=== PATIENT | male | born 1950 | race Caucasian/White ===

== ENCOUNTER 2017-07-08 22:15 | Emergency (ER) | payer OTHER ==
[~2017-07-08] VITALS: Ht 177.8 cm; Wt 83.9 kg
[~2017-07-08 22:15] MED LIST: AMOX500 PO; CEPH500 PO; HYDACE10B PO; HYDACE5 PO; NAPR500 PO; PERCOCET; PHENERGAN; PRED10 PO; WATER PILL
== END 2017-07-08 23:21 | disposition left against medical advice (07) ==
LOC: ER 22:15
DX: S01.01XA Laceration without foreign body of scalp, initial encounter (principal); W18.30XA Fall on same level, unspecified, initial encounter; F17.200 Nicotine dependence, unspecified, uncomplicated
CPT/HCPCS: 12002; 99283

== ENCOUNTER 2017-07-20 09:35 | Emergency (ER) | payer OTHER ==
[~2017-07-20] VITALS: Ht 175.3 cm; Wt 72.6 kg
== END 2017-07-20 09:59 | disposition home or self-care (01) ==
LOC: ER 09:35
DX: S01.01XD Laceration without foreign body of scalp, subsequent encounter (principal); W01.198D Fall on same level from slipping, tripping and stumbling with subsequent striking against other object, subsequent encounter; F17.200 Nicotine dependence, unspecified, uncomplicated
CPT/HCPCS: 99281

== ENCOUNTER 2017-09-14 13:39 | Emergency (ER) | payer OTHER ==
[~2017-09-14] VITALS: Ht 175.3 cm; Wt 72.6 kg
[2017-09-14] MEDS ORDERED: Norco 5-325 Ta1 EACH PO (15:30)
== END 2017-09-14 16:19 | disposition home or self-care (01) ==
LOC: ER 13:39
DX: S43.015A Anterior dislocation of left humerus, initial encounter (principal); F17.200 Nicotine dependence, unspecified, uncomplicated; W01.0XXA Fall on same level from slipping, tripping and stumbling without subsequent striking against object, initial encounter
CPT/HCPCS: 23650; 73020; 73030; 96372; 99152; 99284; J3010; J7030

== ENCOUNTER 2017-09-20 11:42 | Emergency (ER) | payer OTHER ==
[~2017-09-20] VITALS: Ht 175.3 cm; Wt 72.6 kg
[~2017-09-20 11:42] MED LIST changes: +Norco 5-325 Ta1 EACH PO
[2017-09-20] MEDS ORDERED: IBUP800 PO (13:21)
== END 2017-09-20 13:41 | disposition home or self-care (01) ==
LOC: ER 11:42
DX: S42.292A Other displaced fracture of upper end of left humerus, initial encounter for closed fracture (principal); S43.005A Unspecified dislocation of left shoulder joint, initial encounter; G56.32 Lesion of radial nerve, left upper limb; F17.200 Nicotine dependence, unspecified, uncomplicated; X58.XXXA Exposure to other specified factors, initial encounter
CPT/HCPCS: 29125; 73060; 73110; 99283; L3917

== ENCOUNTER 2018-08-22 14:57 | Inpatient (IN) | payer OTHER ==
[~2018-08-22] VITALS: Ht 175.3 cm; Wt 81.0 kg
[~2018-08-22 14:57] MED LIST changes: +IBUP800 PO
[2018-08-22 15:45] LABS: BASOPHILS ABSOLUTE AUTO 0.02 K/mm3 (0.00-0.23); BASOPHILS PERCENT AUTO 0 % (0-2); EOSINOPHILS ABSOLUTE AUTO 0.07 K/mm3 (0.00-0.68); EOSINOPHILS PERCENT AUTO 1 % (0-6); Hematocrit 33.8 % (37.0-53.0); Hemoglobin 12.6 g/dL (13.5-17.5); IMMATURE GRAN PERCENT AUTO 1 % (0-1); LYMPHOCYTES ABSOLUTE AUTO 1.09 K/mm3 (0.84-5.20); LYMPHOCYTES PERCENT AUTO 9 % (21-46); MONOCYTES ABSOLUTE AUTO 1.03 K/mm3 (0.16-1.47); MONOCYTES PERCENT AUTO 9 % (4-13); Mean Corpuscular HGB Conc 37.3 g/dL (31.5-36.5); Mean Corpuscular Volume 110 fL (80-100); Mean Platelet Volume 9.8 fL (9.1-12.4); NEUTROPHILS ABSOLUTE AUTO 9.55 K/mm3 (1.96-9.15); NEUTROPHILS PERCENT AUTO 81 % (41-73); NRBC ABSOLUTE 0.02 K/mm3 (0.00-0.02); NRBC Auto 0.2 /100 WBC (0.0-0.2); Platelet Count 163 K/mm3 (150-400); RDW Coefficient Variation 17.6 % (11.7-14.2); RDW Standard Deviation 71.2 fL (35.1-46.3); Red Blood Cell Count 3.07 M/mm3 (4.30-5.90); White Blood Cell Count 11.86 K/mm3 (4.00-11.30)
[2018-08-22 16:14] LABS: Alanine Aminotransfer (ALT/SGP 83 U/L (12-78); Albumin, Blood 2.2 g/dL (3.4-5.0); Albumin/Globulin Ratio 0.6 (0.8-1.8); Alk Phos 156 U/L (50-136); Anion Gap 14 mmol/L (6-16); Aspartate Aminotrans (AST/SGOT 124 U/L (12-37); Bilirubin, Total 9.3 mg/dL (0.1-1.0); Blood Urea Nitrogen 8 mg/dL (8-24); Bun/Creatinine Ratio 9.2 (12.0-20.0); CO2, Blood 26 mmol/L (21-32); Calcium, Blood 7.8 mg/dL (8.5-10.1); Chloride, Blood 86 mmol/L (98-108); Creatinine, Blood 0.87 mg/dL (0.60-1.20); Ethanol (Alcohol), Blood, Med <3 mg/dL; Globulin, Blood 3.8 g/dL (2.2-4.0); Glomerular Filtration Rate >60 (60-); Glucose, Blood 128 mg/dL (70-99); International Normalized Ratio 1.99; Magnesium, Blood 1.7 mg/dL (1.6-2.4); Phosphorus, Blood 1.5 mg/dL (2.5-4.9); Potassium, Blood 3.1 mmol/L (3.5-5.5); Prothrombin Time Results 19.8 Sec (9.7-11.5); Sodium, Blood 126 mmol/L (136-145); Troponin I 0.037 ng/mL (0.000-0.040)
[2018-08-22 16:38] LABS: Source, Urine Clean Catch
[2018-08-22 16:40] LABS: Blood, Urine 2+ (Neg); Glucose Qualitative, Urine Neg (Neg); Ketones, Urine 1+ (Neg); Leukocyte Esterase, Urine 2+ (Neg); Nitrite, Urine Pos (Neg); Protein, Urine 1+ (Neg); Urobilinogen, Urine 4+ (Normal)
[2018-08-22 16:53] LABS: Bilirubin, Urine 3+ (Neg)
[2018-08-22 16:54] LABS: Appearance, Urine Clear (Clear); Color, Urine Amber (P-Yellow)
[2018-08-22 16:57] LABS: Renal Epithelial Few /hpf (0-Rare)
[2018-08-22 16:58] LABS: Bacteria Few /hpf; Hyaline Casts 0-2 /lpf (0-2); Squamous Epithelial Cells Not Seen /hpf (Few)
[2018-08-22 18:22] LABS: BASOPHILS ABSOLUTE AUTO 0.01 K/mm3 (0.00-0.23); BASOPHILS PERCENT AUTO 0 % (0-2); EOSINOPHILS ABSOLUTE AUTO 0.02 K/mm3 (0.00-0.68); EOSINOPHILS PERCENT AUTO 0 % (0-6); Hemoglobin 12.3 g/dL (13.5-17.5); IMMATURE GRAN PERCENT AUTO 1 % (0-1); LYMPHOCYTES ABSOLUTE AUTO 0.89 K/mm3 (0.84-5.20); LYMPHOCYTES PERCENT AUTO 8 % (21-46); MONOCYTES ABSOLUTE AUTO 1.07 K/mm3 (0.16-1.47); MONOCYTES PERCENT AUTO 9 % (4-13); Mean Corpuscular HGB 40.5 pg (26.0-34.0); Mean Corpuscular HGB Conc 37.3 g/dL (31.5-36.5); Mean Corpuscular Volume 109 fL (80-100); Mean Platelet Volume 9.9 fL (9.1-12.4); NEUTROPHILS PERCENT AUTO 82 % (41-73); NRBC ABSOLUTE 0.02 K/mm3 (0.00-0.02); NRBC Auto 0.2 /100 WBC (0.0-0.2); Platelet Count 147 K/mm3 (150-400); RDW Coefficient Variation 17.5 % (11.7-14.2); RDW Standard Deviation 69.8 fL (35.1-46.3); Red Blood Cell Count 3.04 M/mm3 (4.30-5.90); White Blood Cell Count 11.69 K/mm3 (4.00-11.30)
--- NOTE | 2018-08-22 19:42 | NUR ---
transfer report from [facility] RN on PT being admitted with alcoholism, liver failure, Jaundice, weakness. Will be Tele monitor and fall and seizure precautions. Await admission.
--- NOTE | 2018-08-22 19:46 | NUR ---
transfer report on PT being admitted with weakness, alcoholism. Will be tele monitored and fall risk. ETOH level negative and reported no ETOH x 2 weeks.
--- NOTE | 2018-08-23 04:08 | NUR ---
MALE PT ADMITTED WITH ALCOHOLIC HEPATITIS AND ASCITES AND JAUNDICE.PT SAID HE HAD 9 YEARS OF SOBRIETY WITH 2 MONTHS AGO RELAPSE. RECENT FALLS AND SCATTERED ABRAISIONS. ON TELE MONITOR WITH TACHYCARDIA. PT UNABLE TO STAND OR EVEN BALANCE FOR BID ORTHOSTAIC CHECKS LAST BP 95 SYSTOLIC. SMOKER 50 PLUS YEARS WITH COPD. MOIST LOOSE COUGH PRESENT. ON ROOM AIR. LAST DRINK 2 WEEKS AGO AND NO SIGNS OF SEIZURE ACTIVITY. FALL RISK AND HAS COAGULOPATHY. COOPERATIVE AND TAKES SUPPLEMENTS AND SNACKS WHEN OFFERED. sON AND dtr SUPPORTIVE BUT DON'T LIVE WITH PT. RECIEVED BANANA BAG OF IV FLUIDS. CONTINUE TO PROVIDE SAFE ENVIRONMENT. WILL CALL GI CONSULT DIRECTED TO DO ON THURSDAY.
[2018-08-23 06:04] LABS: Albumin, Blood 2.1 g/dL (3.4-5.0); Albumin/Globulin Ratio 0.6 (0.8-1.8); Alk Phos 173 U/L (50-136); Anion Gap 11 mmol/L (6-16); Bilirubin, Direct 6.4 mg/dL (0.0-0.3); Bilirubin, Indirect 1.4 mg/dL (0.1-0.7); Bilirubin, Total 7.8 mg/dL (0.1-1.0); Blood Urea Nitrogen 7 mg/dL (8-24); Bun/Creatinine Ratio 8.6 (12.0-20.0); CO2, Blood 25 mmol/L (21-32); Calcium, Blood 8.1 mg/dL (8.5-10.1); Chloride, Blood 92 mmol/L (98-108); Creatinine, Blood 0.81 mg/dL (0.60-1.20); Globulin, Blood 3.5 g/dL (2.2-4.0); Glomerular Filtration Rate >60 (60-); Glucose, Blood 143 mg/dL (70-99); Magnesium, Blood 2.2 mg/dL (1.6-2.4); Phosphorus, Blood 1.6 mg/dL (2.5-4.9); Potassium, Blood 3.1 mmol/L (3.5-5.5); Sodium, Blood 128 mmol/L (136-145); Total Protein, Blood 5.6 g/dL (6.4-8.2)
[2018-08-23 06:05] LABS: Alanine Aminotransfer (ALT/SGP 73 U/L (12-78); Aspartate Aminotrans (AST/SGOT 99 U/L (12-37)
--- NOTE | 2018-08-23 13:24 | NUR ---
Per admit trigger, I met with Mr. Ramirez to discuss an Advanced Directive. He was not particularly interested, but took the information. He was pleasantly dismissive. I will remain available.
[2018-08-23 17:55] LABS: BASOPHILS ABSOLUTE AUTO 0.02 K/mm3 (0.00-0.23); BASOPHILS PERCENT AUTO 0 % (0-2); EOSINOPHILS ABSOLUTE AUTO 0.03 K/mm3 (0.00-0.68); EOSINOPHILS PERCENT AUTO 0 % (0-6); Hematocrit 32.2 % (37.0-53.0); Hemoglobin 11.7 g/dL (13.5-17.5); IMMATURE GRAN ABSOLUTE AUTO 0.15 K/mm3 (0.00-0.10); IMMATURE GRAN PERCENT AUTO 1 % (0-1); LYMPHOCYTES ABSOLUTE AUTO 0.86 K/mm3 (0.84-5.20); LYMPHOCYTES PERCENT AUTO 8 % (21-46); MONOCYTES ABSOLUTE AUTO 0.98 K/mm3 (0.16-1.47); MONOCYTES PERCENT AUTO 9 % (4-13); Mean Corpuscular HGB 39.7 pg (26.0-34.0); Mean Corpuscular HGB Conc 36.3 g/dL (31.5-36.5); Mean Corpuscular Volume 109 fL (80-100); Mean Platelet Volume 10.1 fL (9.1-12.4); NEUTROPHILS ABSOLUTE AUTO 8.67 K/mm3 (1.96-9.15); NEUTROPHILS PERCENT AUTO 81 % (41-73); NRBC ABSOLUTE 0.02 K/mm3 (0.00-0.02); NRBC Auto 0.2 /100 WBC (0.0-0.2); Platelet Count 163 K/mm3 (150-400); RDW Coefficient Variation 17.4 % (11.7-14.2); RDW Standard Deviation 69.3 fL (35.1-46.3); Red Blood Cell Count 2.95 M/mm3 (4.30-5.90); White Blood Cell Count 10.71 K/mm3 (4.00-11.30)
--- NOTE | 2018-08-23 23:33 | NUR ---
SHIFT SUMMARY NO ACUTE CHANGES THIS SHIFT. PATIENT HAS BEEN INCONTINENT OF BLADDER MOST OF THE TIME. HE HAD TWO BM'S. HE DOES BEST AMBULATING TO THE TOILET FOR BM'S. HE IS FORGETFUL AT TIMES BUT NOT IMPULSIVE AT THIS TIME. NO COMPLAINTS OF PAIN. HE HAS REMAINED IN SINUS TACH THIS SHIFT. HE AMBULATES WELL WITH A WALKER TO THE BATHROOM. BED LOW AND LOCKED, CALL LIGHT WITHIN REACH, BED ALARM SET. WILL CONT TO MONITOR.
[2018-08-24 05:31] LABS: Hemoglobin 11.8 g/dL (13.5-17.5); Mean Corpuscular HGB 40.7 pg (26.0-34.0); Mean Corpuscular HGB Conc 36.9 g/dL (31.5-36.5); Mean Corpuscular Volume 110 fL (80-100); Mean Platelet Volume 10.1 fL (9.1-12.4); NRBC ABSOLUTE 0.04 K/mm3 (0.00-0.02); NRBC Auto 0.3 /100 WBC (0.0-0.2); Platelet Count 151 K/mm3 (150-400); RDW Coefficient Variation 17.4 % (11.7-14.2); RDW Standard Deviation 70.8 fL (35.1-46.3); White Blood Cell Count 13.85 K/mm3 (4.00-11.30)
--- NOTE | 2018-08-24 05:39 | NUR ---
ATTEMPTED TO CONSULT: PER CONSULT ORDER, DR LEHMAN'S ANSWERING SERVICE WAS CALLED TO REQUEST CONSULT. ANSWERING SERVICE SAYS DR LEHMAN IS ONLY ACCEPTING CONSULTS FOR EXISTING (CURRENT) PATIENTS.
[2018-08-24 06:02] LABS: Anion Gap 9 mmol/L (6-16); Blood Urea Nitrogen 9 mg/dL (8-24); Bun/Creatinine Ratio 12.1 (12.0-20.0); CO2, Blood 28 mmol/L (21-32); Calcium, Blood 8.5 mg/dL (8.5-10.1); Chloride, Blood 93 mmol/L (98-108); Creatinine, Blood 0.75 mg/dL (0.60-1.20); Glomerular Filtration Rate >60 (60-); Glucose, Blood 125 mg/dL (70-99); Potassium, Blood 3.5 mmol/L (3.5-5.5); Sodium, Blood 130 mmol/L (136-145)
--- NOTE | 2018-08-24 08:14 | NUR ---
SHIFT SUMMARY: NO ACUTE CHANGES TO REPORT THIS SHIFT. PT A&O; FORGETFUL; CALM AND COOPERATIVE WITH CARE. PT ON TELE; TACHYCARDIC; LUNGS COARSE & WHEEZY.EXPECTED D/C TO HOME ON THURSDAY 08/24. REPORT GIVEN TO ONCOMING RN.
--- NOTE | 2018-08-24 10:30 | NUR ---
NOTE LEFT ON VOICEMAIL, NO GI SCHEDULED FOR REST OF MONTH. IF SHE WANTS ONE SHE NEEDS TO DO "DOCTOR TO DOCTOR" CONSULT.
--- NOTE | 2018-08-24 15:25 | NUR ---
PATIENT ALERT AND ORIENTED. FORGETFUL. COOPERATIVE. PLEASANT. ON TELE AND AT THIS TIME [address] UP TO 110. UNLABORED RESPIRATIONS. 2 PERSON ASSIST TO BATHROOM W/WALKER AND GAITBELT. CIWA 0-4. PT C/O ANXIETY "ANXIOUS TO GET OUT." IV PATENT. NO C/O PAIN. JAUNDICE. UNSTEADY ON FEET. BED IN LOW POSITION. IS ABLE TO MAKE NEEDS KNOWN. WILL CONTINUE TO MONITOR.
[2018-08-24 19:29] LABS: BASOPHILS ABSOLUTE AUTO 0.04 K/mm3 (0.00-0.23); BASOPHILS PERCENT AUTO 0 % (0-2); EOSINOPHILS ABSOLUTE AUTO 0.05 K/mm3 (0.00-0.68); EOSINOPHILS PERCENT AUTO 0 % (0-6); Hematocrit 31.5 % (37.0-53.0); Hemoglobin 11.5 g/dL (13.5-17.5); IMMATURE GRAN ABSOLUTE AUTO 0.15 K/mm3 (0.00-0.10); IMMATURE GRAN PERCENT AUTO 1 % (0-1); LYMPHOCYTES ABSOLUTE AUTO 1.29 K/mm3 (0.84-5.20); LYMPHOCYTES PERCENT AUTO 10 % (21-46); MONOCYTES ABSOLUTE AUTO 1.08 K/mm3 (0.16-1.47); MONOCYTES PERCENT AUTO 9 % (4-13); Mean Corpuscular HGB 40.8 pg (26.0-34.0); Mean Corpuscular HGB Conc 36.5 g/dL (31.5-36.5); Mean Corpuscular Volume 112 fL (80-100); Mean Platelet Volume 9.9 fL (9.1-12.4); NEUTROPHILS ABSOLUTE AUTO 9.91 K/mm3 (1.96-9.15); NEUTROPHILS PERCENT AUTO 79 % (41-73); Platelet Count 173 K/mm3 (150-400); RDW Coefficient Variation 17.3 % (11.7-14.2); RDW Standard Deviation 71.5 fL (35.1-46.3); Red Blood Cell Count 2.82 M/mm3 (4.30-5.90); White Blood Cell Count 12.52 K/mm3 (4.00-11.30)
--- NOTE | 2018-08-25 03:36 | NUR ---
Pt is alert and oriented x3, CIWA score is 0. Pts abdomen firm and distended, lung sounds clear throughout. Telemetry reflects NSR with heart rate 100-110. Pts bed alarm on for safety. Pt denies pain and nausea.
[2018-08-25 06:01] LABS: Anion Gap 7 mmol/L (6-16); Blood Urea Nitrogen 8 mg/dL (8-24); Bun/Creatinine Ratio 9.7 (12.0-20.0); CO2, Blood 29 mmol/L (21-32); Calcium, Blood 7.9 mg/dL (8.5-10.1); Chloride, Blood 94 mmol/L (98-108); Creatinine, Blood 0.83 mg/dL (0.60-1.20); Glomerular Filtration Rate >60 (60-); Glucose, Blood 102 mg/dL (70-99); Potassium, Blood 3.7 mmol/L (3.5-5.5); Sodium, Blood 130 mmol/L (136-145)
[2018-08-25 10:18] LABS: Albumin, Blood 1.9 g/dL (3.4-5.0); Albumin/Globulin Ratio 0.6 (0.8-1.8); Bilirubin, Indirect 0.9 mg/dL (0.1-0.7); Bilirubin, Total 5.9 mg/dL (0.1-1.0); Globulin, Blood 3.3 g/dL (2.2-4.0); Total Protein, Blood 5.2 g/dL (6.4-8.2)
--- NOTE | 2018-08-25 19:00 | NUR ---
ALERT AND ORIENTED. WALKED TWICE TODAY. SECOND WALK IN HALLWAY SAME DISTANCE FIRST. WHEN PATIENT GOT BACK INTO ROOM HAD TO USE TOILET, WAS TACHYPNEIC AND FELT LIKE HE WAS GOING TO "PASS OUT." LEFT MESSAGE ON 'S VOICE MAIL. NIGHT RN ADVISED. AWARE NO GI MD ON TILL AUGUST. PATIENT FORGETFUL. STS "LOOSING MY MUSCLE, NOT WALKING." ADVISED WHEN HE ARRIVED HE COULD NOT WALK AND NOW HE IS. REPORT TO NIGHT RN.
[2018-08-25 20:47] LABS: Free Thyroxine 1.32 ng/dL (0.70-1.60)
[2018-08-25 20:50] LABS: Thyroid Stimulating Hormone 1.59 uIU/mL (0.360-4.800)
--- NOTE | 2018-08-25 21:41 | NUR ---
PATIENT OUT OF ROOM FOR CT PE STUDY.
--- NOTE | 2018-08-25 22:43 | NUR ---
PATIENT BACK IN ROOM. RESTING/SLEEPING. CALL LIGHT IN REACH.
--- NOTE | 2018-08-26 05:00 | NUR ---
SHIFT SUMMARY PATIENT HAD NO ACUTE CHANGES OBSERVED THIS SHIFT. AXOX 3 AND ONE PERSON ASSIST TO BSC. PIV LEAKED AND REPLACED. NS INFUSING AT 150 mL/HR. HR 116 AT SHIFT CHANGE AND 102 PRESENT. DENIES PAIN, SOB, AND N/V. AFEBRILE. PATIENT OUT FOR CT PE STUDY AND BACK TO ROOM. BED ALARM ACTIVATED AND IN LOWEST POSITION. CALL LIGHT IN REACH. WILL CONTINUE TO MONITOR UNTIL DAY SHIFT NURSE ASSUMES CARE.
[2018-08-26 05:43] LABS: BASOPHILS ABSOLUTE AUTO 0.04 K/mm3 (0.00-0.23); BASOPHILS PERCENT AUTO 0 % (0-2); EOSINOPHILS ABSOLUTE AUTO 0.04 K/mm3 (0.00-0.68); EOSINOPHILS PERCENT AUTO 0 % (0-6); Hematocrit 31.8 % (37.0-53.0); Hemoglobin 11.3 g/dL (13.5-17.5); IMMATURE GRAN ABSOLUTE AUTO 0.12 K/mm3 (0.00-0.10); IMMATURE GRAN PERCENT AUTO 1 % (0-1); LYMPHOCYTES ABSOLUTE AUTO 0.83 K/mm3 (0.84-5.20); LYMPHOCYTES PERCENT AUTO 6 % (21-46); MONOCYTES ABSOLUTE AUTO 1.17 K/mm3 (0.16-1.47); MONOCYTES PERCENT AUTO 8 % (4-13); Mean Corpuscular HGB 40.5 pg (26.0-34.0); Mean Corpuscular HGB Conc 35.5 g/dL (31.5-36.5); Mean Corpuscular Volume 114 fL (80-100); Mean Platelet Volume 9.9 fL (9.1-12.4); NEUTROPHILS ABSOLUTE AUTO 12.26 K/mm3 (1.96-9.15); NEUTROPHILS PERCENT AUTO 85 % (41-73); Platelet Count 175 K/mm3 (150-400); RDW Coefficient Variation 17.9 % (11.7-14.2); RDW Standard Deviation 75.4 fL (35.1-46.3); Red Blood Cell Count 2.79 M/mm3 (4.30-5.90); White Blood Cell Count 14.46 K/mm3 (4.00-11.30)
[2018-08-26 06:08] LABS: Anion Gap 8 mmol/L (6-16); Blood Urea Nitrogen 7 mg/dL (8-24); Bun/Creatinine Ratio 9.3 (12.0-20.0); CO2, Blood 27 mmol/L (21-32); Chloride, Blood 98 mmol/L (98-108); Creatinine, Blood 0.75 mg/dL (0.60-1.20); Glomerular Filtration Rate >60 (60-); Glucose, Blood 106 mg/dL (70-99); Potassium, Blood 4.2 mmol/L (3.5-5.5); Sodium, Blood 133 mmol/L (136-145)
--- NOTE | 2018-08-26 18:16 | NUR ---
Mr. Ramirez was very tired, but allowed me to pray for him at bedside. No needs or concerns presented. He is happy to be feeling better and believes this will continue. I will remain available.
--- NOTE | 2018-08-26 19:10 | NUR ---
SHIFT SUMMARY: NO ACUTE CHANGES TO REPORT THIS SHIFT. PT A&O; CALM AND COOPERATIVE WITH CARE. NO C/O PAIN THIS SHIFT. WEAK GAIT; UP WITH 1-ASSIST. REPORT GIVEN TO ONCOMING RN.
--- NOTE | 2018-08-26 23:26 | NUR ---
PATIENT ACTIVATE BED ALARM X 4 IN LAST FEW HOURS. USING URINAL AT BEDSIDE OR REPORTS WANTS TO SIT UP. CALL LIGHT IN REACH. CHAIR ALARM ACTIVATED. PATIENT WANTING TO WATCH TV.
[2018-08-27 00:10] LABS: HBSAG SCREEN Negative (Negative); HEP A AB, IGM Negative (Negative); HEP B CORE AB, TOT Negative (Negative); HEP C VIRUS AB <0.1 (0.0-0.9)
--- NOTE | 2018-08-27 03:21 | NUR ---
SHIFT SUMMARY PATIENT ACTIVE SETTING OFF BED ALARM T/O SHIFT. PATIENT ON LASIX AND MOVES TO SIDE OF BED TO USE URINAL WITH ASSIST. PATIENT MOVES TO BEDSIDE FOR REPOSITIONING TO SIT. PATIENT INFORMED TO USE CHAIR TO SIT WITH TAB ALARM. AXO X3 WITH ONE ASSIST. PIVS REMAIN INTACT. DENIES PAIN, SOB, AND N/V; AFEBRILE. HR 108 AT SHIFT CHANGE AND 111 PRESENT. NO ACUTE CHANGES OBSERVED. CALL LIGHT IN REACH. WILL CONTINUE TO MONITOR UNTIL DAY SHIFT NURSE ASSUMES CARE.
[2018-08-27 05:12] LABS: BASOPHILS ABSOLUTE AUTO 0.05 K/mm3 (0.00-0.23); BASOPHILS PERCENT AUTO 0 % (0-2); EOSINOPHILS ABSOLUTE AUTO 0.06 K/mm3 (0.00-0.68); EOSINOPHILS PERCENT AUTO 1 % (0-6); Hematocrit 35.1 % (37.0-53.0); Hemoglobin 12.5 g/dL (13.5-17.5); IMMATURE GRAN ABSOLUTE AUTO 0.08 K/mm3 (0.00-0.10); IMMATURE GRAN PERCENT AUTO 1 % (0-1); LYMPHOCYTES ABSOLUTE AUTO 0.93 K/mm3 (0.84-5.20); LYMPHOCYTES PERCENT AUTO 8 % (21-46); MONOCYTES ABSOLUTE AUTO 1.04 K/mm3 (0.16-1.47); MONOCYTES PERCENT AUTO 9 % (4-13); Mean Corpuscular HGB 40.5 pg (26.0-34.0); Mean Corpuscular HGB Conc 35.6 g/dL (31.5-36.5); Mean Corpuscular Volume 114 fL (80-100); Mean Platelet Volume 9.7 fL (9.1-12.4); NEUTROPHILS ABSOLUTE AUTO 9.07 K/mm3 (1.96-9.15); NEUTROPHILS PERCENT AUTO 81 % (41-73); NRBC ABSOLUTE 0.02 K/mm3 (0.00-0.02); NRBC Auto 0.2 /100 WBC (0.0-0.2); Platelet Count 196 K/mm3 (150-400); RDW Coefficient Variation 17.8 % (11.7-14.2); RDW Standard Deviation 74.6 fL (35.1-46.3); Red Blood Cell Count 3.09 M/mm3 (4.30-5.90); White Blood Cell Count 11.23 K/mm3 (4.00-11.30)
[2018-08-27 05:50] LABS: Magnesium, Blood 1.9 mg/dL (1.6-2.4)
[2018-08-27 05:58] LABS: Albumin, Blood 2.2 g/dL (3.4-5.0); Anion Gap 10 mmol/L (6-16); Blood Urea Nitrogen 8 mg/dL (8-24); Bun/Creatinine Ratio 10.1 (12.0-20.0); CO2, Blood 26 mmol/L (21-32); Calcium, Blood 8.3 mg/dL (8.5-10.1); Chloride, Blood 98 mmol/L (98-108); Creatinine, Blood 0.79 mg/dL (0.60-1.20); Glomerular Filtration Rate >60 (60-); Glucose, Blood 95 mg/dL (70-99); Phosphorus, Blood 3.2 mg/dL (2.5-4.9); Potassium, Blood 3.3 mmol/L (3.5-5.5); Sodium, Blood 134 mmol/L (136-145)
[2018-08-27] MEDS ORDERED: Phos-Nak Packe1 EACH PO (14:22)
[2018-08-27] MEDS ORDERED: K-Dur20 MEQ PO (14:23)
[2018-08-27] MEDS ORDERED: DULERA 200 MCG/13 GM INH (14:24)
[2018-08-27] MEDS ORDERED: ONDA4ODT MM (14:24)
[2018-08-27] MEDS ORDERED: FURO20 PO (14:25)
[2018-08-27] MEDS ORDERED: FOLI400 PO (14:26)
[2018-08-27] MEDS ORDERED: FAMO20 PO (14:26)
[2018-08-27] MEDS ORDERED: Senna Plus Tab1 EACH PO (14:27)
[2018-08-27] MEDS ORDERED: CARV3.125 PO (14:27)
[2018-08-27] MEDS ORDERED: ALBU2.5V5 NEB (14:28)
--- NOTE | 2018-08-27 15:01 | NUR ---
DISCHARGE DISCHARGE INSTRUCTIONS, MEDICATION LIST AND FOLLOW UP APPOINTMENTS REVIEWED WITH PT, QUESTIONS/CONCERNS ANSWERED. PT VERBALLY INDICATED UNDERSTANDING OF ALL INSTRUCTIONS RECEIVED. NEW MEDS [facility] TO [facility] PT PREFERENCE. PT DISCHARGED WITH [facility] VIA W/C
== END 2018-08-27 14:52 | disposition home health service (06) | DRG 897 ==
LOC: ER 14:57 → MEDS 14:58
PROVIDERS: Emergency Medicine; Internal Medicine; ADMIT Internal Medicine
DX: F10.27 Alcohol dependence with alcohol-induced persisting dementia (principal); D68.9 Coagulation defect, unspecified; E87.1 Hypo-osmolality and hyponatremia; J90 Pleural effusion, not elsewhere classified; K70.11 Alcoholic hepatitis with ascites; E53.8 Deficiency of other specified B group vitamins; J44.9 Chronic obstructive pulmonary disease, unspecified; K70.31 Alcoholic cirrhosis of liver with ascites; F17.210 Nicotine dependence, cigarettes, uncomplicated; Z66 Do not resuscitate; E87.6 Hypokalemia; R09.02 Hypoxemia
CPT/HCPCS: 36415; 51701; 71045; 71046; 71260; 76705; 80048; 80053; 80069; 80076; 81001; 82140; 82550; 82607; 82746; 83735; 84100; 84145; 84439; 84443; 84484; 85025; 85027; 85379; 85610; 85730; 86704; 86708; 86803; 87086; 87340; 93005; 93010; 93306; 94640; 94760; 96360-59; 96361; 96361-59; 96365; 96366; 96367; 96375; 97116; 97162; 97166; 97530; 97535; 99285-25; G0378; G0480; J1940; J3475; J7030; J7042; J7060; Q9967

== ENCOUNTER 2018-09-03 15:03 | Inpatient (IN) | payer OTHER ==
[~2018-09-03] VITALS: Ht 175.3 cm; Wt 77.1 kg
[~2018-09-03 15:03] MED LIST changes: +ALBU2.5V5 NEB; +CARV3.125 PO; +DULERA 200 MCG/13 GM INH; +FAMO20 PO; +FOLI400 PO; +FURO20 PO; +K-Dur20 MEQ PO; +ONDA4ODT MM; +Phos-Nak Packe1 EACH PO; +Senna Plus Tab1 EACH PO
[2018-09-03 15:48] LABS: BASOPHILS ABSOLUTE AUTO 0.04 K/mm3 (0.00-0.23); BASOPHILS PERCENT AUTO 0 % (0-2); EOSINOPHILS ABSOLUTE AUTO 0.07 K/mm3 (0.00-0.68); EOSINOPHILS PERCENT AUTO 1 % (0-6); Hematocrit 39.5 % (37.0-53.0); Hemoglobin 13.4 g/dL (13.5-17.5); IMMATURE GRAN ABSOLUTE AUTO 0.12 K/mm3 (0.00-0.10); IMMATURE GRAN PERCENT AUTO 1 % (0-1); LYMPHOCYTES PERCENT AUTO 5 % (21-46); MONOCYTES ABSOLUTE AUTO 0.73 K/mm3 (0.16-1.47); MONOCYTES PERCENT AUTO 6 % (4-13); Mean Corpuscular HGB 39.8 pg (26.0-34.0); Mean Corpuscular HGB Conc 33.9 g/dL (31.5-36.5); Mean Platelet Volume 9.8 fL (9.1-12.4); NEUTROPHILS PERCENT AUTO 87 % (41-73); Platelet Count 190 K/mm3 (150-400); RDW Coefficient Variation 15.5 % (11.7-14.2); RDW Standard Deviation 68.3 fL (35.1-46.3); Red Blood Cell Count 3.37 M/mm3 (4.30-5.90); White Blood Cell Count 12.46 K/mm3 (4.00-11.30)
[2018-09-03 15:50] LABS: Mean Corpuscular Volume 117 fL (80-100)
[2018-09-03 15:56] LABS: PCO2 Arterial 44.2 mmHg (35-45); PO2 Arterial 56.7 mmHg (80-100); pH Blood Arterial 7.39 (7.35-7.45)
[2018-09-03 16:04] LABS: International Normalized Ratio 1.2; Prothrombin Time Results 12.5 Sec (9.7-11.5)
[2018-09-03 16:10] LABS: Alanine Aminotransfer (ALT/SGP 71 U/L (12-78); Albumin, Blood 2.3 g/dL (3.4-5.0); Albumin/Globulin Ratio 0.5 (0.8-1.8); Alk Phos 230 U/L (50-136); Anion Gap 5 mmol/L (6-16); Aspartate Aminotrans (AST/SGOT 92 U/L (12-37); Bilirubin, Total 3.7 mg/dL (0.1-1.0); Blood Urea Nitrogen 11 mg/dL (8-24); Bun/Creatinine Ratio 15.9 (12.0-20.0); CO2, Blood 29 mmol/L (21-32); Calcium, Blood 8.1 mg/dL (8.5-10.1); Chloride, Blood 103 mmol/L (98-108); Creatinine, Blood 0.69 mg/dL (0.60-1.20); Ethanol (Alcohol), Blood, Med <3 mg/dL; Globulin, Blood 4.4 g/dL (2.2-4.0); Glomerular Filtration Rate >60 (60-); Glucose, Blood 166 mg/dL (70-99); Magnesium, Blood 1.9 mg/dL (1.6-2.4); Potassium, Blood 3.8 mmol/L (3.5-5.5); Sodium, Blood 137 mmol/L (136-145); Total Protein, Blood 6.7 g/dL (6.4-8.2); Troponin I 0.017 ng/mL (0.000-0.040)
[2018-09-03 16:45] LABS: Influenza A Negative (NEGATIVE); Influenza B Negative (NEGATIVE)
[2018-09-03] MEDS ORDERED: IBUP800 PO (18:14)
--- NOTE | 2018-09-03 18:47 | NUR ---
Initial Visit: Palliative Care Consult for goals of care and symptom management. Pt is A&Ox4 and denies pain at this time. He reports 4/7 dyspnea and states his SOB has improved from earlier. Pt also reports oxygen and breathing treatments are beneficial. Engaged in therapeutic conversation regarding goals of care and symptom management. He reports current regimen is managing his dyspnea. Pt is of Muslim [place] but does not attend any jewish. He lives with a roomate and reports he could benefit from extra support such as caregivers coming into his home to assist with ADLs. He reports intermittent bladder incontinents and occasionally needs assistance in getting dressed. He reports that he can transfer and ambulate on his own and is able to cook for himself. He has a son and daughter but both have busy lives. Pt also reports that his son has his completed POLST and he will ask him to bring it in for medical records. Discussion was made about disease process and Pt's manager intermediate goals. He states that he hasn't given it much thought and would "like to live a little bit longer". Educated Pt on other care options as disease process takes it's coarse such as hospice with V/U made by Pt. Pt reports no other concerns at this time. Plan: Remain available for symptom management. Called and left a message with healthcare facility administrator Fannie regarding conversation of caregivers coming to Pt's home. Dr Amaral has already place social service consult. Will remain available.
--- NOTE | 2018-09-04 04:50 | NUR ---
SHIFT SUMMARY PT ARRIVED FROM ER EARLY IN THE SHIFT. PT WAS TIRED AND FEELING WEAK. PT HAD SOME SOB UPON ARRIVAL BUT DECREASED AFTER SHORT PERIOD. PT TRIED TO SLEEP WITHOUT SUCCESS. THERE IS A LOUD PT ON FLOOR THAT IS CAUSING MANY PT'S TO HAVE DIFFICULTY SLEEPING. PT DENIES ANY INCREASED SOB OR DISCOMFORT. PT CONTINUES TO HAVE ELEVATED HEART RATE PER FIRER LOCOMOTIVE. CURRENTLY PT IS WATCHING TV AND BREATHING EASY. CALL LIGHT IN REACH.
[2018-09-04 05:20] LABS: BASOPHILS ABSOLUTE AUTO 0.03 K/mm3 (0.00-0.23); BASOPHILS PERCENT AUTO 0 % (0-2); EOSINOPHILS PERCENT AUTO 0 % (0-6); Hematocrit 34.7 % (37.0-53.0); IMMATURE GRAN ABSOLUTE AUTO 0.24 K/mm3 (0.00-0.10); IMMATURE GRAN PERCENT AUTO 1 % (0-1); LYMPHOCYTES ABSOLUTE AUTO 0.46 K/mm3 (0.84-5.20); LYMPHOCYTES PERCENT AUTO 2 % (21-46); MONOCYTES ABSOLUTE AUTO 0.35 K/mm3 (0.16-1.47); MONOCYTES PERCENT AUTO 2 % (4-13); Mean Corpuscular HGB 38.8 pg (26.0-34.0); Mean Corpuscular HGB Conc 34.6 g/dL (31.5-36.5); NEUTROPHILS ABSOLUTE AUTO 18.37 K/mm3 (1.96-9.15); NEUTROPHILS PERCENT AUTO 94 % (41-73); Platelet Count 179 K/mm3 (150-400); RDW Coefficient Variation 15.3 % (11.7-14.2); Red Blood Cell Count 3.09 M/mm3 (4.30-5.90); White Blood Cell Count 19.45 K/mm3 (4.00-11.30)
[2018-09-04 05:27] LABS: Mean Corpuscular Volume 112 fL (80-100)
[2018-09-04 05:48] LABS: Alanine Aminotransfer (ALT/SGP 55 U/L (12-78); Albumin, Blood 1.9 g/dL (3.4-5.0); Albumin/Globulin Ratio 0.5 (0.8-1.8); Alk Phos 151 U/L (50-136); Anion Gap 10 mmol/L (6-16); Aspartate Aminotrans (AST/SGOT 79 U/L (12-37); Bilirubin, Total 4.4 mg/dL (0.1-1.0); Blood Urea Nitrogen 10 mg/dL (8-24); Bun/Creatinine Ratio 15.2 (12.0-20.0); CO2, Blood 27 mmol/L (21-32); Calcium, Blood 7.9 mg/dL (8.5-10.1); Chloride, Blood 102 mmol/L (98-108); Creatinine, Blood 0.66 mg/dL (0.60-1.20); Globulin, Blood 3.9 g/dL (2.2-4.0); Glomerular Filtration Rate >60 (60-); Glucose, Blood 107 mg/dL (70-99); Potassium, Blood 3.3 mmol/L (3.5-5.5); Sodium, Blood 139 mmol/L (136-145); Total Protein, Blood 5.8 g/dL (6.4-8.2)
--- NOTE | 2018-09-04 17:33 | NUR ---
PALLIATIVE CARE CLINICAL VISIT. Follow up visit made to assess dyspnea and s/s management. Reviewed EMR and update obtained from RN, who reports pt's dyspnea tolerable at rest but is significant with ANY activity. ASsessed pt who also reports extreme dyspnea with anything other than lying still. He denies pain, nausea or HU. He states he is not suppose to get OOB on his own. Medications for resp s/s management reviewed and requested RT tx for prn ventolin tx and start of pulmicort resp tx that is scheduled but not started yet. Reviewed this recommendation with RN and pt. Pt receptive and verbalized appreciation. Dyspnea is his primary c/o distress. Educated on deep breathing and coughing regularly. He currently he has a loose and recently becoming productive cough. His ascites and abd girth may be contributing to his sob. Discussed complications of bedrest and asked him to change position or move around in bed as much as possible during wakeful periods. He verbalized understanding. RN called RT who will be up to administer tx. Planned with pt to visit tomorrow to check on s/s again.
--- NOTE | 2018-09-04 18:59 | NUR ---
SHIFT SUMMARY: NO ACUTE CHANGES TO REPORT THIS SHIFT. PT A&O; CALM AND COOPERATIVE WITH CARE. NO C/O PAIN THIS SHIFT. TELE IN PLACE; ST @ 108 PER SUPERVISOR TAN ROOM DURING MORNING ASSESSMENT. SANCHEZ IN PLACE; PATENT & DRAINING. BLE EDEMA; DIURETICS CONTINUING. HEPATIC DIET STARTED THIS SHIFT. REPORT GIVEN TO ONCOMING RN.
[2018-09-05 04:55] LABS: Hemoglobin 11.2 g/dL (13.5-17.5); Mean Corpuscular HGB 39.2 pg (26.0-34.0); Mean Corpuscular HGB Conc 33.9 g/dL (31.5-36.5); Mean Platelet Volume 10.3 fL (9.1-12.4); Platelet Count 180 K/mm3 (150-400); RDW Coefficient Variation 15.3 % (11.7-14.2); RDW Standard Deviation 65.8 fL (35.1-46.3); Red Blood Cell Count 2.86 M/mm3 (4.30-5.90)
[2018-09-05 04:57] LABS: Mean Corpuscular Volume 115 fL (80-100)
[2018-09-05 05:07] LABS: Alanine Aminotransfer (ALT/SGP 49 U/L (12-78); Albumin, Blood 1.8 g/dL (3.4-5.0); Albumin/Globulin Ratio 0.5 (0.8-1.8); Alk Phos 166 U/L (50-136); Anion Gap 8 mmol/L (6-16); Aspartate Aminotrans (AST/SGOT 58 U/L (12-37); Bilirubin, Total 2.4 mg/dL (0.1-1.0); Blood Urea Nitrogen 24 mg/dL (8-24); Bun/Creatinine Ratio 29.5 (12.0-20.0); CO2, Blood 29 mmol/L (21-32); Calcium, Blood 8.1 mg/dL (8.5-10.1); Chloride, Blood 103 mmol/L (98-108); Creatinine, Blood 0.81 mg/dL (0.60-1.20); Globulin, Blood 3.8 g/dL (2.2-4.0); Glomerular Filtration Rate >60 (60-); Glucose, Blood 203 mg/dL (70-99); Sodium, Blood 140 mmol/L (136-145); Total Protein, Blood 5.6 g/dL (6.4-8.2)
[2018-09-05 05:08] LABS: International Normalized Ratio 1.33; Prothrombin Time Results 13.7 Sec (9.7-11.5)
--- NOTE | 2018-09-05 06:15 | NUR ---
PATIENT RESTING COMFORTABLY IN BED THIS SHIFT; PATIENT SLEPT VERY LUITTLE; NEEDFUL AND PRESSING HIS PÉREZ FREQUENTLY; EDUCATED PATIENT ABOUT ROUNDING POLICY AND ASKED THAT HE ADDRESS HIS NEEDS AT TIMES ROUND WHERE POSSIBLE. PATIENT SEEMS TO CONSISTENTLY HAVE MEWS SCORE OF 3; FOR THIS MORNIGN PATIENT WAS MOVING AROUND BEOFRE HIS VITALSIGNS WERE CHACKED. WILL CONTINUE TO MONITOR
--- NOTE | 2018-09-05 15:56 | NUR ---
Case conferenced with RN prior to my visit. Pt reports improved dyspnea with breathing treatments. He continues to deny pain. His abdomen remains firm and distended and he is scheduled for a therapeutic paracentesis later today. Pt's RN voiced concern related to pt's ability to manage self care on discharge. nutritional services cook referral entered with notes and concerns r/t my conversation with pt and his RN. Pt was assessed by Palliative Care RN on 09/03 and NOK listed as Son Silverio [phone]. Pt lives with a roommate and prior to this admission pt needed assist with dressing and personal care occasionally. It appears his self care deficit is much greater at this time. Pt does not seem able to converse re: his many chronic severe disease processes or advanced care planning with his impaired cognition. Pal care to f/u for s/s management and working with family re: advanced care planning. I have not found family present during my visits this weekend. Pt may benefit from HH services, Hospice if appropriate per and either cg in the home or alternative placement. He will need ongoing assessment & s/s management r/t end stage liver disease, ascites, portal HTN & COPD after discharge.
[2018-09-05 16:44] LABS: Adenovirus Not Detected (NOT DETECT); Bordetella pertussis Not Detected (NOT DETECT); Chlamydophila pneumoniae Not Detected (NOT DETECT); Coronavirus 229E Not Detected (NOT DETECT); Coronavirus HKU1 Not Detected (NOT DETECT); Coronavirus NL63 Not Detected (NOT DETECT); Coronavirus OC43 Not Detected (NOT DETECT); Human Metapneumovirus Not Detected (NOT DETECT); Human Rhinovirus/Enterovirus Not Detected (NOT DETECT); Influenza A Not Detected (NOT DETECT); Influenza A/2009-H1 Not Detected (NOT DETECT); Influenza A/H1 Not Detected (NOT DETECT); Influenza A/H3 Not Detected (NOT DETECT); Influenza B Not Detected (NOT DETECT); Mycoplasma pneumoniae Not Detected (NOT DETECT); Parainfluenza Virus 1 Not Detected (NOT DETECT); Parainfluenza Virus 2 Not Detected (NOT DETECT); Parainfluenza Virus 3 Not Detected (NOT DETECT); Parainfluenza Virus 4 Not Detected (NOT DETECT); Respiratory Syncytial Virus Not Detected (NOT DETECT)
[2018-09-05 16:50] LABS: Automated BF WBC Count 0.048 K/mm3 (0-999); Body Fluid WBC Count 48 /mm3 (0-999)
[2018-09-05 16:57] LABS: Albumin, Body Fluid 0.2 g/dL; Protein, Body Fluid 0.4 g/dL
[2018-09-05 17:13] LABS: Appearance, Body Fluid Hazy (Clear); Color, Body Fluid Yellow (None-Yellow)
--- NOTE | 2018-09-05 18:21 | NUR ---
SHIFT SUMMARY. A&OX2, INTERMITTENT CONFUSION AND FORGETFULNESS, PLEASANT. SBA TO BSC. PT REPORTS BREATHING HAS IMPROVED FROM YESTERDAY. CONTINUES WITH 3L O2 NC. PT RECIEVED PARACENTESIS TODAY AND IT WAS REPORTED THAT 3.75L WERE REMOVED. PT DENIES PAIN, N/V, AND ONLY MILD SOB WITH EXERTION. NEW IV INSERTED. NO OTHER CHANGES.
[2018-09-05 19:09] LABS: RBC Count, Body Fluid 12 /mm3 (0-0); Total Cell Count, Body Fluid 100
[2018-09-06 05:30] LABS: BASOPHILS ABSOLUTE AUTO 0.01 K/mm3 (0.00-0.23); BASOPHILS PERCENT AUTO 0 % (0-2); EOSINOPHILS PERCENT AUTO 0 % (0-6); Hematocrit 38.9 % (37.0-53.0); Hemoglobin 13.3 g/dL (13.5-17.5); IMMATURE GRAN ABSOLUTE AUTO 0.04 K/mm3 (0.00-0.10); IMMATURE GRAN PERCENT AUTO 0 % (0-1); LYMPHOCYTES ABSOLUTE AUTO 0.27 K/mm3 (0.84-5.20); LYMPHOCYTES PERCENT AUTO 3 % (21-46); MONOCYTES ABSOLUTE AUTO 0.25 K/mm3 (0.16-1.47); MONOCYTES PERCENT AUTO 3 % (4-13); Mean Corpuscular HGB Conc 34.2 g/dL (31.5-36.5); Mean Corpuscular Volume 114 fL (80-100); NEUTROPHILS PERCENT AUTO 94 % (41-73); Platelet Count 206 K/mm3 (150-400); RDW Standard Deviation 64.7 fL (35.1-46.3); Red Blood Cell Count 3.41 M/mm3 (4.30-5.90); White Blood Cell Count 9.37 K/mm3 (4.00-11.30)
[2018-09-06 05:38] LABS: Albumin, Blood 2.1 g/dL (3.4-5.0); Anion Gap 9 mmol/L (6-16); Blood Urea Nitrogen 30 mg/dL (8-24); Bun/Creatinine Ratio 40.4 (12.0-20.0); CO2, Blood 31 mmol/L (21-32); Calcium, Blood 8.2 mg/dL (8.5-10.1); Chloride, Blood 99 mmol/L (98-108); Creatinine, Blood 0.74 mg/dL (0.60-1.20); Glomerular Filtration Rate >60 (60-); Glucose, Blood 108 mg/dL (70-99); Phosphorus, Blood 2.6 mg/dL (2.5-4.9); Potassium, Blood 3.8 mmol/L (3.5-5.5); Sodium, Blood 139 mmol/L (136-145)
--- NOTE | 2018-09-06 06:27 | NUR ---
CONSUMER STUDIES PROFESSOR SUMMARY PT AAOX3 AND PLEASANT. STATES BREATHING IMPROVED BUT REMAINS ON 3L O2 VIA NC. PT HAD EMESIS X2 TONIGHT ALONG WITH 1 INSTANCE OF DIARRHEA. PT HAD ENSURE AND 2 YOGURTS TONIGHT. PT STATES THEY MAY BE THE CAUSE OF HIS UPSET STOMACH. GAVE ZOFRAN PER EMAR. VITALS HAVE BEEN STABLE. MOLD CAPPER HELPER REPORTS SINUS TACH IN LOW 100'S FOR MOST OF NIGHT. WILL CONTINUE TO MONITOR.
--- NOTE | 2018-09-06 09:43 | NUR ---
PT NAUSEUS, REQUESTING TO TAKE PO MEDS AT A LATER TIME.
--- NOTE | 2018-09-06 10:50 | NUR ---
Permission for care Patient gave graduate student permission to assist in providing care on 09/07/2017 from [phone]. Pat Doan
--- NOTE | 2018-09-06 11:46 | NUR ---
PT WITH N/V/D, REQUESTING TO SLEEP. DR. TRIPLETT GAVE VERBAL TO HOLD PO MEDICATIONS IF UNABLE TO TOLERATE PO INTAKE, DR. TRIPLETT REQUESTED THAT IV LASIX BE HELD.
[2018-09-06 13:59] LABS: Adenovirus F 40/41 Not Detected (NOT DETECT); Astrovirus Not Detected (NOT DETECT); Campylobacter Sp Not Detected (NOT DETECT); Cryptosporidium Not Detected (NOT DETECT); Cyclospora Cayetanensis Not Detected (NOT DETECT); E. Coli O157 Not Detected (NOT DETECT); Entamoeba Histolytica Not Detected (NOT DETECT); Enteroaggregative E. coli-EAEC Not Detected (NOT DETECT); Enteropathogenic E. coli-EPEC Not Detected (NOT DETECT); Enterotoxigenic E. coli-ETEC Not Detected (NOT DETECT); Giardia Lamblia Not Detected (NOT DETECT); Norovirus GI/GII Detected (NOT DETECT); Plesiomonas Shigelloides Not Detected (NOT DETECT); Rotavirus A Not Detected (NOT DETECT); Salmonella Sp Not Detected (NOT DETECT); Sapovirus Not Detected (NOT DETECT); Shiga Toxin-prod E. coli-STEC Not Detected (NOT DETECT); Shigella/Enteroin E. coli-EIEC Not Detected (NOT DETECT); Vibrio Cholerae Not Detected (NOT DETECT); Vibrio Sp Not Detected (NOT DETECT); Yersinia Enterocolitica Not Detected (NOT DETECT)
--- NOTE | 2018-09-06 18:06 | NUR ---
SHIFT SUMMARY. PT WITH 3-4 INCONTINENT LIQUID BROWN STOOLS TODAY, GI PANEL SENT AND CAME BACK POSITIVE FOR NOROVIRUS, PT PLACED IN CONTACT ISOLATION PER PROTOCOL. PT SLEPT MOST OF THE DAY, HAD POOR APPETITE, WAS ABLE TO DRINK CLEAR LIQUIDS ONLY. PT DENIED PAIN, SOB. SOME NAUSEA THIS AM WITH SMALL AMOUNT OF VOMITTING. PT STILL REQUIRING 3L O2 NC, PT REPORTS THAT BREATHING HAS CONTINUED TO IMPROVE.
[2018-09-07 04:56] LABS: Hematocrit 40.1 % (37.0-53.0); Hemoglobin 13.4 g/dL (13.5-17.5); Mean Corpuscular HGB 37.7 pg (26.0-34.0); Mean Corpuscular HGB Conc 33.4 g/dL (31.5-36.5); Mean Corpuscular Volume 113 fL (80-100); Mean Platelet Volume 10.1 fL (9.1-12.4); Platelet Count 173 K/mm3 (150-400); RDW Coefficient Variation 15.1 % (11.7-14.2); RDW Standard Deviation 62.9 fL (35.1-46.3); Red Blood Cell Count 3.55 M/mm3 (4.30-5.90); White Blood Cell Count 7.54 K/mm3 (4.00-11.30)
[2018-09-07 05:27] LABS: Anion Gap 7 mmol/L (6-16); Blood Urea Nitrogen 28 mg/dL (8-24); Bun/Creatinine Ratio 38.9 (12.0-20.0); CO2, Blood 34 mmol/L (21-32); Calcium, Blood 7.9 mg/dL (8.5-10.1); Chloride, Blood 101 mmol/L (98-108); Creatinine, Blood 0.72 mg/dL (0.60-1.20); Glomerular Filtration Rate >60 (60-); Glucose, Blood 90 mg/dL (70-99); Potassium, Blood 3.3 mmol/L (3.5-5.5); Sodium, Blood 142 mmol/L (136-145)
--- NOTE | 2018-09-07 06:25 | NUR ---
SHIFT SUMMARY PT AWAKE ON/OFF T/O NIGHT. AOX3. VSS. DENIES PAIN OR NAUSEA & NO EMESIS THIS SHIFT. REPORTS SOB W/EXERTION & ASKED FOR BREATHING TX PER ORDERS. SPO2 >90% ON 2L NC, BREATHING E/U. PT HAD 2 LIQUID LARGE/MEDIUM INCONTINENT BM. CALL LIGHT IS IN REACH & PT USES IT APPROPRIATELY. I WILL CONT TO MONITOR UNTIL DAY SHIFT RN ASSUMES CARE.
--- NOTE | 2018-09-07 18:10 | NUR ---
PT A/OX3, PLEASANT AND COOPERATIVE, UP WITH ASSIST TO THE CHAIR, THE PT REPORTED BREATHING EASIER THIS AM COMPARED TO ADMISSION, THE PT IS MILDLY SOB ACTIVITY, THE PT DENIED ANY PAIN T/O THE DAY, THE PT DECIDED TODAY THAT HE WANTED HIS CODE STATUS CHANGED FROM DNR TO FULL CODE, A CALL WAS MADE TO DR. TRIPLETT AND THE ORDER WAS CHANGED, CALL LIGHT IN REACH, NO OTHER CHANGES NOTICED THIS SHIFT
--- NOTE | 2018-09-08 05:08 | NUR ---
SUMMARY: A/OX4, PLEASANT AND COOPERATIVE AND SPECIFIES NEEDS. HE'S DENIED SOB AND ALL OTHER COMPLAINTS THIS SHIFT. HE GETS SLIGHTLY SOB W/EXERTION BUT RECOVERS QUICKLY AT REST AND REMAINS ON 2L O2 VIA NC. SBA PROVIDED FROM BED TO CHAIR. PT REPORTS BM'S HAVE VASTLY IMPROVED AND HE ONLY HAD X1 THIS SHIFT W/ATTENDS CHANGED PRN. SANCHEZ IS PATENT/DRAINING. ABDO CONT'S DISTENDED AND FIRM BUT PT DENIES PAIN OR NAUSEA. SNFF PLACEMENT PENDING AND PT WAS TOLD HE MAY POSSIBLY D/C TO [facility] TODAY. NO ACUTE CHANGES, VSS/AFEBRILE. WILL MONITOR AND REPORT TO DAY RN.
[2018-09-08 05:13] LABS: Anion Gap 6 mmol/L (6-16); Blood Urea Nitrogen 20 mg/dL (8-24); Bun/Creatinine Ratio 29.9 (12.0-20.0); CO2, Blood 34 mmol/L (21-32); Chloride, Blood 100 mmol/L (98-108); Creatinine, Blood 0.67 mg/dL (0.60-1.20); Glomerular Filtration Rate >60 (60-); Glucose, Blood 118 mg/dL (70-99); Potassium, Blood 3.6 mmol/L (3.5-5.5); Sodium, Blood 140 mmol/L (136-145)
--- NOTE | 2018-09-08 18:20 | NUR ---
SHIFT SUMMARY 1 PERSON ASSIST WITH TRANSFER IN TO CHAIR. O2 AT 2L/M BY NC. REPORTS SOB WITH EXERTION. HAD SMALL LOOSE BM THIS MORNING BUT NO FURTHER BMS NOTED TODAY. HAS HAD NO COMPLAINTS AND MINIMAL NEEDS TODAY.
--- NOTE | 2018-09-09 02:19 | NUR ---
SHIFT SUMMARY PT A&O, LYING HF TALKING WITH SON DURING SHIFT REPORT. PT ADMITTED FOR RESPIRATORY FAILURE AND HYPOXIA; TO BE D/C'D HOME IN AM. CURRENTLY ON 2L NC, NORMALLY ON RA. POSSIBLE D/C WITH O2 PENDING HOME O2 EVAL THIS AM. ABD DISTENDED R/T ASCITIES. PER REPORT, 1L OFF ABD THURSDAY. HX OF ESLD AND PORTAL HTN. SANCHEZ TO GRAVITY; PATENT DRAINING SAMMIE URINE. REFUSED SCD'S. PT HAS REMAINED AWAKE ALL NIGHT, CALLING FREQUENTLY FOR ONE THING OR ANOTHER. HAS REQUESTED MULTIPLE DRINKS AND SNACKS, THEN DOES NOT EAT THEM. LUNGS T/O DIMINISHED AND COARSE WITH SCATTERED EXP WHEEZES. IN CONTACT ISO FOR NOROVIRUS. CALL LT IN REACH.
[2018-09-09] MEDS ORDERED: DELTASONE20 MG PO (16:06)
[2018-09-09] MEDS ORDERED: SPIR25 PO (16:08)
[2018-09-09] MEDS ORDERED: TIOT18 INH (16:09)
--- NOTE | 2018-09-09 17:47 | NUR ---
DISCHARGE DISCHARGE INSTRUCTIONS, MEDICATION LIST AND FOLLOW UP APPOINTMENT REVIEWED WITH PT. QUESTIONS/CONCERNS ANSWERED. PT VERBALLY INDICATED UNDERSTANDING OF ALL INSTRUCTIONS RECEIVED. DISCHARGE VIA W/C
== END 2018-09-09 17:27 | disposition home health service (06) | DRG 291 ==
LOC: ER 15:03 → MEDS 17:39 → ERHOLD 17:39 → MEDS 19:33
PROVIDERS: Emergency Medicine; Internal Medicine; ADMIT Internal Medicine
PROC: 0W9G3ZZ Drainage of Peritoneal Cavity, Percutaneous Approach (ICD-10-PCS; principal; 2018-09-05)
DX: I11.0 Hypertensive heart disease with heart failure (principal); I50.31 Acute diastolic (congestive) heart failure; J96.01 Acute respiratory failure with hypoxia; D68.9 Coagulation defect, unspecified; K76.6 Portal hypertension; A08.11 Acute gastroenteropathy due to Norwalk agent; F17.210 Nicotine dependence, cigarettes, uncomplicated; Z51.5 Encounter for palliative care; K52.9 Noninfective gastroenteritis and colitis, unspecified; F09 Unspecified mental disorder due to known physiological condition; F10.20 Alcohol dependence, uncomplicated; J43.9 Emphysema, unspecified; K70.31 Alcoholic cirrhosis of liver with ascites; Z66 Do not resuscitate; R00.0 Tachycardia, unspecified; E87.6 Hypokalemia
CPT/HCPCS: 36415; 36600; 49083; 51702; 71045; 71046; 80048; 80053; 80069; 82042; 82803; 83735; 83880; 84157; 84484; 85025; 85027; 85610; 85730; 87486; 87507; 87581; 87633; 87798; 87804; 89051; 93005; 93010; 94640; 94760; 94761; 96374-59; 97110; 97116; 97162; 97530; 99285-25; G0480; J1940; J2405; J2930

== ENCOUNTER 2018-09-11 12:15 | Inpatient (IN) | payer OTHER ==
[~2018-09-11] VITALS: Ht 175.3 cm; Wt 83.0 kg
[~2018-09-11 12:15] MED LIST changes: +ALBU2.5V5 INH; -ALBU2.5V5 NEB; +DELTASONE20 MG PO; +SPIR25 PO; +TIOT18 INH
[2018-09-11 12:41] LABS: BASOPHILS ABSOLUTE AUTO 0.04 K/mm3 (0.00-0.23); BASOPHILS PERCENT AUTO 0 % (0-2); EOSINOPHILS PERCENT AUTO 0 % (0-6); Hematocrit 40.6 % (37.0-53.0); Hemoglobin 13.1 g/dL (13.5-17.5); IMMATURE GRAN ABSOLUTE AUTO 0.11 K/mm3 (0.00-0.10); IMMATURE GRAN PERCENT AUTO 1 % (0-1); LYMPHOCYTES ABSOLUTE AUTO 0.45 K/mm3 (0.84-5.20); LYMPHOCYTES PERCENT AUTO 4 % (21-46); MONOCYTES PERCENT AUTO 6 % (4-13); Mean Corpuscular HGB 38.1 pg (26.0-34.0); Mean Corpuscular HGB Conc 32.3 g/dL (31.5-36.5); NEUTROPHILS PERCENT AUTO 89 % (41-73); Platelet Count 152 K/mm3 (150-400); RDW Coefficient Variation 14.6 % (11.7-14.2); RDW Standard Deviation 64.8 fL (35.1-46.3); Red Blood Cell Count 3.44 M/mm3 (4.30-5.90)
[2018-09-11 12:42] LABS: Mean Corpuscular Volume 118 fL (80-100)
[2018-09-11 12:53] LABS: PCO2 Arterial 69.4 mmHg (35-45); PO2 Arterial 71.6 mmHg (80-100)
[2018-09-11 12:54] LABS: pH Blood Arterial 7.29 (7.35-7.45)
[2018-09-11 13:03] LABS: Alanine Aminotransfer (ALT/SGP 85 U/L (12-78); Albumin, Blood 1.9 g/dL (3.4-5.0); Albumin/Globulin Ratio 0.4 (0.8-1.8); Alk Phos 169 U/L (50-136); Anion Gap 8 mmol/L (6-16); Aspartate Aminotrans (AST/SGOT 112 U/L (12-37); Bilirubin, Total 2.1 mg/dL (0.1-1.0); Blood Urea Nitrogen 25 mg/dL (8-24); Bun/Creatinine Ratio 34.7 (12.0-20.0); CO2, Blood 28 mmol/L (21-32); Calcium, Blood 7.8 mg/dL (8.5-10.1); Chloride, Blood 98 mmol/L (98-108); Creatinine, Blood 0.72 mg/dL (0.60-1.20); Globulin, Blood 4.3 g/dL (2.2-4.0); Glomerular Filtration Rate >60 (60-); Glucose, Blood 162 mg/dL (70-99); Potassium, Blood 4.3 mmol/L (3.5-5.5); Sodium, Blood 134 mmol/L (136-145); Total Protein, Blood 6.2 g/dL (6.4-8.2); Troponin I 0.088 ng/mL (0.000-0.040)
[2018-09-11] MEDS ORDERED: FURO20 PO (14:46)
[2018-09-11] MEDS ORDERED: Phos-Nak Packe1 EACH PO (14:47)
[2018-09-11] MEDS ORDERED: ONDA4ODT MM (14:48)
[2018-09-11] MEDS ORDERED: POTCHL20ER PO (14:49)
--- NOTE | 2018-09-11 15:20 | NUR ---
RECEIVED REPORT FROM LUCILA ESTRELLA, ED, PATIENT ARRIVED VIA STRETCHER TO ROOM 11, MOVED TO BED VIA SLIDER AND 4 ASSIST, PATIENT ON 3L NC AT THIS TIME, CONTINUOUS PULSE OX AND TELEMETRY APPLIED, PATIENT IS ALERT AND ORIENTED AND PROVIDES GOOD HEALTH HISTORY, FAMILY AT BEDSIDE WELL, AGREEING WITH PATIENT STATEMENTS, PATIENT VISIBLY LABORS WITH BREATHING AND USES ACCESSORY MUSCLES, DESATS INTO MID TO UPPER 80'S WHEN DRINKING OR TALKING, HEART SOUNDS ARE DISTANT, PATIENT IN SR WITH HR IN 80'S TO 90'S, BLOOD PRESSURES SLIGHTLY HYPOTENSIVE IN LOW 100'S, LUNG SOUNDS ARE TIGHT AND WHEEZY THROUGHOUT, BT'S ARE PRESENT AND HYPOACTIVE, ABDOMEN SLIGHTLY DISTENDED BY NONTENDER AND SOFT ON PALPATION, PATIENT IS INCONTINENT, WEARS ATTENDS AT HOME, ABLE TO REPOSITION SELF AND ROLL EASILY FROM SIDE TO SIDE, HOWEVER, GENERALIZED WEAKNESS NOTED, PATIENT HAS A LUMP BETWEEN SHOULDER BLADES, SKIN OVERALL C/D/I WITH MULTIPLE ECCHYMOTIC AREAS ON BILATERAL LOWER EXTREMITIES, SCD'S APPLIED, PATIENT WEARS GLASSES AND HAS UPPER AND LOWER DENTURES, ORDERED MEDICATION WERE GIVEN, AND PATIENT HAS NO PROBLEM SWALLOWING WITH SOME COFFEE, PIV PRESENT ON L AC, FIELD START, FLUSHES WITHOUT ANY PROBLEMS, PATIENT AND FAMILY WERE ORIENTED TO ROOM AND ENVIRONMENT, CALL LIGHT AND REMOTE WERE EXPLAINED AND ALL VERBALIZED UNDERSTANDING, CALL LIGHT IN REACH, WILL CONTINUE TO MONITOR.
--- NOTE | 2018-09-11 17:50 | NUR ---
SHIFT SUMMARY NOTE: PATIENT IS NOW CONFUSED, ON BIPAP 06/03 WITH 4L O2 BLED IN, PATIENT LS ARE TIGHT AND WHEEZY, NSR, VANCO AND ZOSYN INFUSING, PIV'S IN LEFT AND RIGHT AC'S, PATIENT VERBALIZED WISH TO SIT IN RECLINER, CHAIR ALARM PLACED, PATIENT MOVED TO RECLINER, FOR DETAILS SEE SHIFT ASSESSMENT DOCUMENTATION AND NURSES NOTES, CALL LIGHT IN REACH, WILL CONTINUE TO MONITOR AND GIVE REPORT TO ONCOMING ENGAGEMENT ENGINEER.
--- NOTE | 2018-09-12 04:47 | NUR ---
SHIFT SUMMARY: PATIENTS CONFUSION INCREASING THROUGHOUT THIS SHIFT, PATEINT CHEWING ON NEBULIZER AND CALL LIGHT STATING THAT HE WAS 'DRINKING COFFEE'. PATIENT PULLED BOTH IV'S OUT, NEW ONE PLACED. PATIENT PULLED CONDOM CATHETER OFF, PATIENT TURNING SELF WITH REMINDERS. BIPAP ON FOR INTERMITTENTLY FOR A TOTAL OF APPROX 4 HOURS, PATIENT KEPT PULLING OFF AND DISASSEMBELING MASK AND TUBING. STAFF STAYED CLOSE TO MONITOR PATIENT, ROUNDS INCREASED. OXIMETRY HARD TO MONITOR DUE TO PATIENT POOR PERFUSION AND FIDGETING WITH EQUIPMENT, SATURATION SEEMS TO RANGE FROM 87% TO 95% ON 5LNC AND/OR BIPAP. ALL OTHER VSS, BED LOW AND LOCKED WITH EXIT ALARM ON, CALL LIGHT WITHIN REACH.
[2018-09-12 04:50] LABS: Hematocrit 40.8 % (37.0-53.0); Hemoglobin 13.8 g/dL (13.5-17.5); Mean Corpuscular HGB 39.2 pg (26.0-34.0); Mean Corpuscular HGB Conc 33.8 g/dL (31.5-36.5); Mean Corpuscular Volume 116 fL (80-100); Mean Platelet Volume 11.5 fL (9.1-12.4); Platelet Count 152 K/mm3 (150-400); RDW Coefficient Variation 14.2 % (11.7-14.2); RDW Standard Deviation 61.6 fL (35.1-46.3); Red Blood Cell Count 3.52 M/mm3 (4.30-5.90); White Blood Cell Count 7.74 K/mm3 (4.00-11.30)
[2018-09-12 05:09] LABS: Anion Gap 9 mmol/L (6-16); Blood Urea Nitrogen 30 mg/dL (8-24); Bun/Creatinine Ratio 30.3 (12.0-20.0); CO2, Blood 32 mmol/L (21-32); Calcium, Blood 7.7 mg/dL (8.5-10.1); Chloride, Blood 98 mmol/L (98-108); Creatinine, Blood 0.99 mg/dL (0.60-1.20); Glomerular Filtration Rate >60 (60-); Glucose, Blood 88 mg/dL (70-99); Potassium, Blood 3.7 mmol/L (3.5-5.5); Sodium, Blood 139 mmol/L (136-145)
[2018-09-12 16:59] LABS: Vancomycin, Trough 17.3 ug/mL (5.0-10.0)
--- NOTE | 2018-09-12 18:08 | NUR ---
SHIFT SUMMARY PT RESTING IN BED THROUGHOUT THE DAY. VSS. ALERT AND ORIENTED TO SELF, FAMILY AND TIME. HAVING EPISODES OF CONFUSION OFF AND ON TODAY, FAMILY STATES THIS IS NOT NORMAL FOR HIM. DENIES PAIN THROUGHOUT THE DAY. LUNG SOUNDS TIGHT, COARSE, WHEEZES THROUGHOUT AND DIMINISHED BASES. OXYGEN SATURATION 90-94% ON 3L VIA NC. SINUS TACHYCARDIA RATE 100s-120s TODAY PER TELE. INCONTINENT OF URINE MULTIPLE TIMES TODAY. FAMILY AT BEDSIDE THIS AFTERNOON. WILL CONTINUE TO MONITOR.
--- NOTE | 2018-09-12 22:28 | NUR ---
PCU NIGHTSHIFT ASSUMED CARE OF PT APPROX. 1900. PT ALERT AND ORIENTED TO SELF, TIME AND ABLE TO FOLLOW DIRECTIONS. VITAL SIGNS STABLE. HEART RHYTHM SINUS TACHYCARDIA IN 100'S. PT ON 3L OXYGEN VIA N.C. WITH SATS IN 90'S. PT ABLE TO HOLD CONVERSATION AND ANSWER QUESTIONS ASKED. PT ABDOMEN DISTENDED AND FIRM. PT DENIES ANY PAIN OR SOB AT THIS TIME. BED IN LOW POSTION, BED ALARM ON AND CALL LIGHT IN REACH. PT DENIES ANY NEEDS AT THIS TIME. WILL CONTINUE TO MONITOR.
[2018-09-13 03:51] LABS: Hematocrit 37.2 % (37.0-53.0); Hemoglobin 12.6 g/dL (13.5-17.5); Mean Corpuscular HGB Conc 33.9 g/dL (31.5-36.5); Mean Platelet Volume 11.4 fL (9.1-12.4); Platelet Count 142 K/mm3 (150-400); RDW Coefficient Variation 14.6 % (11.7-14.2); RDW Standard Deviation 59.9 fL (35.1-46.3); Red Blood Cell Count 3.32 M/mm3 (4.30-5.90); White Blood Cell Count 25.19 K/mm3 (4.00-11.30)
[2018-09-13 04:12] LABS: Mean Corpuscular Volume 112 fL (80-100)
[2018-09-13 04:14] LABS: Anion Gap 7 mmol/L (6-16); Blood Urea Nitrogen 27 mg/dL (8-24); Bun/Creatinine Ratio 34.6 (12.0-20.0); CO2, Blood 34 mmol/L (21-32); Calcium, Blood 7.9 mg/dL (8.5-10.1); Chloride, Blood 101 mmol/L (98-108); Creatinine, Blood 0.78 mg/dL (0.60-1.20); Glomerular Filtration Rate >60 (60-); Glucose, Blood 167 mg/dL (70-99); Potassium, Blood 3.4 mmol/L (3.5-5.5); Sodium, Blood 142 mmol/L (136-145)
[2018-09-13 05:51] LABS: BAND PERCENT MAN 17 % (0-8); BASOPHILS PERCENT MAN 0 % (0-2); EOSINOPHILS PERCENT MAN 0 % (0-6); LYMPHOCYTES ABSOLUTE MAN 0.25 K/mm3 (0.84-5.20); LYMPHOCYTES PERCENT MAN 1 % (21-46); METAMYELOCYTE PERCENT MAN 2 % (0-0); MONOCYTES PERCENT MAN 0 % (4-13); NEUTROPHILS ABSOLUTE MAN 24.43 K/mm3 (1.96-9.15); SEG NEUTROPHILS PERCENT MAN 80 % (41-73); TOTAL CELLS COUNTED 100
--- NOTE | 2018-09-13 06:01 | NUR ---
SHIFT SUMMARY PT COOPERATIVE. PT MENTATION REMAINS UNCHAGNED FROM BEGINNING OF SHIFT. PT REMAINS ABLE TO HOLD CONVERSATION AND ANSWER QUESTIONS ASKED. ASSESSMENT FINDINGS REMAIN UNCHANGED FROM START OF SHIFT. VITAL SIGNS STABLE, HEART RATE REMAINS SINUS TACHYCARDIA IN 100'S. OXYGEN AT 3L VIA N.C. REMAINS IN PLACE WITH SATS IN 90'S. PT REPOSITION SELF MOST OF NIGHT, OTHERWISE REPOSITIONED BY STAFF. PT WAS ABLE TO SLEEP MOST OF SHIFT. BED IN LOW POSITION, BED ALARM ON, CALL LIGHT IN REACH AND PT DENIES ANY NEEDS AT THIS TIME. WILL CONTINUE TO MONITOR UNTIL HANODFF TO DAY SHIFT RN.
--- NOTE | 2018-09-13 19:36 | NUR ---
SHIFT SUMMARY PT RESTING IN BED THROUGHOUT THE DAY. VSS. ALERT AND ORIENTED X3. LUNG SOUNDS TIGHT AND DIMINISHED IN BASES, OXYGEN SATURATION MID TO HIGH 90s, TITRATED OXYGEN TO 2L/MIN VIA NC. PT REMAINS MID 90s ON 2L. ABDOMEN MODERATELY DISTENDED, PT DENIES TENDERNESS. PT UP TO BEDSIDE COMMODE THROUGHOUT THE DAY AND UP TO CHAIR FOR MEALS. FAMILY AT BEDSIDE THIS AFTERNOON. PT AND FAMILY INFORMED OF PT's NEED TO SIT UP WHEN EATING AND DRINKING AND MADE AWARE THAT HE SHOULD NOT USE STRAWS. PT AND FAMILY VERBALIZE UNDERSTANDING. REPORT GIVEN TO ONCOMING RN.
--- NOTE | 2018-09-13 22:27 | NUR ---
PCU NIGHTSHIFT ASSUMED CARE OF PT APPROX. 1900. PT ALERT AND OREINTED TO SELF AND TIME AND ABLE TO FOLLOW DIRECTIONS. PT ABLE TO HOLD CONVERSATION AND ANSWER QUESTIONS NEEDED. PT SLEEPING AT START OF SHIFT BUT REMAINED ARROUSABLE. ABLE TO AWAKE PT AND COMPLETED ASSESSMENT, VITAL SIGNS STABLE. PT HAS EDEMA IN LEFT ARM +2. PILLOW PLACED UNDER ARM TO ELEVATE. PT REPORTS FEELINGS EXTREMLY TIRED THIS EVENING. HE REPORTS HE HAD A BUSY DAY AND THIS MADE HIM TIRED. WAS ABLE TO GET PT REPOSTIONED IN BED AND HE WENT BACK TO RESTING. BED IN LOW POSTION, BED ALARM ON, CALL LIGHT IN REACH AND PT DENIES ANY NEEDS AT THIS TIME. WILL CONTINUE TO MONITOR.
[2018-09-14 04:21] LABS: BASOPHILS ABSOLUTE AUTO 0.07 K/mm3 (0.00-0.23); BASOPHILS PERCENT AUTO 0 % (0-2); Hematocrit 36.7 % (37.0-53.0); Hemoglobin 12.2 g/dL (13.5-17.5); LYMPHOCYTES ABSOLUTE AUTO 0.76 K/mm3 (0.84-5.20); LYMPHOCYTES PERCENT AUTO 3 % (21-46); MONOCYTES PERCENT AUTO 3 % (4-13); Mean Corpuscular HGB 37.3 pg (26.0-34.0); Mean Corpuscular HGB Conc 33.2 g/dL (31.5-36.5); Mean Corpuscular Volume 112 fL (80-100); Mean Platelet Volume 11.9 fL (9.1-12.4); Platelet Count 128 K/mm3 (150-400); RDW Coefficient Variation 14.6 % (11.7-14.2); RDW Standard Deviation 60.9 fL (35.1-46.3); Red Blood Cell Count 3.27 M/mm3 (4.30-5.90); White Blood Cell Count 26.62 K/mm3 (4.00-11.30)
[2018-09-14 04:25] LABS: EOSINOPHILS PERCENT AUTO 0 % (0-6); IMMATURE GRAN ABSOLUTE AUTO 0.72 K/mm3 (0.00-0.10); IMMATURE GRAN PERCENT AUTO 3 % (0-1); NEUTROPHILS ABSOLUTE AUTO 24.17 K/mm3 (1.96-9.15); NEUTROPHILS PERCENT AUTO 91 % (41-73)
[2018-09-14 04:42] LABS: Vancomycin, Trough 20.4 ug/mL (5.0-10.0)
[2018-09-14 04:44] LABS: Alanine Aminotransfer (ALT/SGP 56 U/L (12-78); Albumin, Blood 1.5 g/dL (3.4-5.0); Albumin/Globulin Ratio 0.4 (0.8-1.8); Alk Phos 158 U/L (50-136); Anion Gap 5 mmol/L (6-16); Aspartate Aminotrans (AST/SGOT 68 U/L (12-37); Bilirubin, Total 1.3 mg/dL (0.1-1.0); Blood Urea Nitrogen 24 mg/dL (8-24); Bun/Creatinine Ratio 36.1 (12.0-20.0); CO2, Blood 32 mmol/L (21-32); Calcium, Blood 8.1 mg/dL (8.5-10.1); Chloride, Blood 104 mmol/L (98-108); Creatinine, Blood 0.67 mg/dL (0.60-1.20); Globulin, Blood 3.5 g/dL (2.2-4.0); Glomerular Filtration Rate >60 (60-); Glucose, Blood 189 mg/dL (70-99); Potassium, Blood 4.4 mmol/L (3.5-5.5); Sodium, Blood 141 mmol/L (136-145)
--- NOTE | 2018-09-14 06:00 | NUR ---
SHIFT SUMMARY PT PLEASANT, COOPERATIVE, AND USES CALL LIGHT APPROPRIATELY. PT MENTATION HAS IMPROVED SLIGHTLY SINCE BEGINNING OF SHIFT. PT REMAINS ABLE TO HOLD CONVERSATION AND ANSWER QUESTIONS ASKED AND REMAINS ORIENTED TO SELF AND OCCASIONALLY TO TIME. PT WAS ABLE TO RECOGNIZE STAFF AND BEGAN TO REMEMBER NAMES OF STAFF. HE STATED HOW HE NEEDED TO ENSURE TO HAVE IN CALL LIGHT IN REACH SO HIT COULD HIT THE BUTTON IF HE NEEDED SOMETHING. VITAL SIGNS STABLE, HEART RATE REMAINS NORMAL SINUS RHYTHM 60'S-70'S. OXYGEN AT 2L VIA N.C. REMAINS IN PLACE WITH SATS IN 90'S. PT REPOSITION SELF MOST OF NIGHT, OTHERWISE REPOSITIONED BY STAFF. PT WAS ABLE TO SLEEP MOST OF SHIFT. BED IN LOW POSITION, BED ALARM ON, CALL LIGHT IN REACH AND PT DENIES ANY NEEDS AT THIS TIME. WILL CONTINUE TO MONITOR UNTIL TO DAY SHIFT RN.
--- NOTE | 2018-09-14 14:37 | NUR ---
Initial Visit: Palliative Care Consult for goals of care. Pt appears agitated when engaging in conversation. Pt's nurse Aniyah present at beginning of visit. Aniyah able to help Pt relax and agree to palliative care visit. Pt denies pain at this time. He reports current regimen is managing his dyspnea. Pt initially reports his bigest concern is to obtain caregivers into his home to help with his care. As the visit progressed the Pt became increasingly agitated. Pt engaged in discussion about hospice and stated his plan was to go home on hospice. Attempted to assess Pt's alertness and orientation to determine appropriatness of having this conversation. This is when Pt became extremely agitated and stated "I know where the Fuck I am and I have heard these Fucking Questions 1500 times, Leave Me the Fuck Alone". At this point I apologized to the Pt and honored his wishes. Spoke with Pt's nurse Aniyah and discussed Pt's agitation and orientation. Aniyah reports the Pt was appropriate this morning and was A&Ox4. She reports as the day progresses the Pt becomes less orientated. Will attempt another visit to establish more clear goals of care at a later date.
--- NOTE | 2018-09-14 19:25 | NUR ---
END OF SHIFT; PT HAD NO ACUTE CHANGES IN CONDITION NOTED DURING SHIFT. PT IS AO X 3 MOST OF DAY. HOWEVER DOES HAVE EPISODES OF CONFUSION WHERE HE THINKS HIS DOG IS LOST IN THE HOSPITAL. FAMILY IN ROOM THIS ERROL PRIOR TO SHIFT CHANGE AND PT IS DISCUSSING GOING TO SNF FACILITY TO GET STRONGER PRIOR TO GOING HOME.
[2018-09-15 03:59] LABS: BASOPHILS ABSOLUTE AUTO 0.02 K/mm3 (0.00-0.23); BASOPHILS PERCENT AUTO 0 % (0-2); EOSINOPHILS PERCENT AUTO 0 % (0-6); Hemoglobin 12.2 g/dL (13.5-17.5); IMMATURE GRAN ABSOLUTE AUTO 0.16 K/mm3 (0.00-0.10); IMMATURE GRAN PERCENT AUTO 1 % (0-1); LYMPHOCYTES ABSOLUTE AUTO 0.91 K/mm3 (0.84-5.20); LYMPHOCYTES PERCENT AUTO 5 % (21-46); MONOCYTES PERCENT AUTO 6 % (4-13); Mean Corpuscular HGB 37.7 pg (26.0-34.0); Mean Corpuscular Volume 114 fL (80-100); Mean Platelet Volume 11.4 fL (9.1-12.4); NEUTROPHILS ABSOLUTE AUTO 16.32 K/mm3 (1.96-9.15); NEUTROPHILS PERCENT AUTO 88 % (41-73); Platelet Count 111 K/mm3 (150-400); RDW Coefficient Variation 14.6 % (11.7-14.2); RDW Standard Deviation 62.3 fL (35.1-46.3); Red Blood Cell Count 3.24 M/mm3 (4.30-5.90); White Blood Cell Count 18.61 K/mm3 (4.00-11.30)
[2018-09-15 04:17] LABS: Albumin, Blood 1.5 g/dL (3.4-5.0); Anion Gap 6 mmol/L (6-16); Blood Urea Nitrogen 24 mg/dL (8-24); Bun/Creatinine Ratio 38.8 (12.0-20.0); CO2, Blood 31 mmol/L (21-32); Calcium, Blood 8.1 mg/dL (8.5-10.1); Chloride, Blood 103 mmol/L (98-108); Creatinine, Blood 0.62 mg/dL (0.60-1.20); Glomerular Filtration Rate >60 (60-); Glucose, Blood 138 mg/dL (70-99); Phosphorus, Blood 2.8 mg/dL (2.5-4.9); Potassium, Blood 4.3 mmol/L (3.5-5.5); Sodium, Blood 140 mmol/L (136-145)
[2018-09-15 05:19] LABS: Adenovirus Not Detected (NOT DETECT); Bordetella pertussis Not Detected (NOT DETECT); Chlamydophila pneumoniae Not Detected (NOT DETECT); Coronavirus 229E Not Detected (NOT DETECT); Coronavirus HKU1 Not Detected (NOT DETECT); Coronavirus NL63 Not Detected (NOT DETECT); Coronavirus OC43 Not Detected (NOT DETECT); Human Metapneumovirus Not Detected (NOT DETECT); Human Rhinovirus/Enterovirus Not Detected (NOT DETECT); Influenza A Not Detected (NOT DETECT); Influenza A/2009-H1 Detected (NOT DETECT); Influenza A/H1 Not Detected (NOT DETECT); Influenza A/H3 Not Detected (NOT DETECT); Influenza B Not Detected (NOT DETECT); Mycoplasma pneumoniae Not Detected (NOT DETECT); Parainfluenza Virus 1 Not Detected (NOT DETECT); Parainfluenza Virus 2 Not Detected (NOT DETECT); Parainfluenza Virus 3 Not Detected (NOT DETECT); Parainfluenza Virus 4 Not Detected (NOT DETECT); Respiratory Syncytial Virus Not Detected (NOT DETECT)
[2018-09-15 05:55] LABS: PCO2 Arterial 48.6 mmHg (35-45); PO2 Arterial 78.5 mmHg (80-100); pH Blood Arterial 7.44 (7.35-7.45)
--- NOTE | 2018-09-15 06:53 | NUR ---
SHIFT SUMMARY . DOZING ON AND OFF ALL SHIFT// HS SNACK. FEEDS SELF AND ASPIRATION PRECAUTIONS TAKEN. BED ALARM ON AT ALL TIMES. ENC TO TURN COUGH AND DEEP BREATHE. VOIDING INCONTINENT ALL NOC. MEPILEX COVERS INTACT AND DRY. DENIES PAIN. VERY WEAK AND HARD TO MOVE SELF ABOUT IN BED. TURNED AND ASSISTS. LT ARM VERY SWOLLEN AND TRIED TO KEEP UP ON PILLOW. REPORTS DISLOCATED SHOULDER AND VERY GUARDED AND PAINFUL W / TURNS. FLUIDS ENCOURAGED. VERY HARD AND DISTENDED ABD AND REPORTS HE NEEDS TO HAVE FLUID REMOVED SOON. VERY COARSE AND LOOSE HARSH COUGH. CALM . COOPERATIVE. AND APPROPRIATE CONVERSING ..VERY MINIMAL FORGETFULNESS. NOTED.
--- NOTE | 2018-09-15 07:21 | NUR ---
NOTED ORDER FOR RESP PANEL AT 0330 AND RESULT IS POSITIVE FOR H1N1. INFUENZA A. DROPLET ISOLATION ESTABLISHED
--- NOTE | 2018-09-15 18:19 | NUR ---
END OF SHIFT; PT NOW IN DROPLET FOR H1 N1. HE WORKED WITH PT AND OT TODAY HOWEVER NOT VERY LONG. HE WAS AGITATED AND SAID HE FELT THEY WERE "PUSHY" PT SAID HE IS FEELING VERY WEAK AND WANTED TO STAY IN BED TODAY. HIS LUNGS ARE COARSE IN THE LOWER LOBES AND HE USES PURSED LIP BREATHING WITH EXERTION. PT IS AO X 3 MOST OF DAY. DOES HAVE A FEW EPISODES WHERE HE NEEDED TO BE REDIRECTED. HE IS COOPERATIVE WITH CARE AND DOES USE HIS CALL LIGHT TO MAKE HIS NEEDS KNOWN.
[2018-09-16 04:39] LABS: BASOPHILS ABSOLUTE AUTO 0.02 K/mm3 (0.00-0.23); BASOPHILS PERCENT AUTO 0 % (0-2); EOSINOPHILS PERCENT AUTO 0 % (0-6); Hematocrit 39.3 % (37.0-53.0); IMMATURE GRAN ABSOLUTE AUTO 0.12 K/mm3 (0.00-0.10); IMMATURE GRAN PERCENT AUTO 1 % (0-1); LYMPHOCYTES ABSOLUTE AUTO 0.85 K/mm3 (0.84-5.20); LYMPHOCYTES PERCENT AUTO 6 % (21-46); MONOCYTES ABSOLUTE AUTO 1.16 K/mm3 (0.16-1.47); MONOCYTES PERCENT AUTO 9 % (4-13); Mean Corpuscular HGB 37.7 pg (26.0-34.0); Mean Corpuscular HGB Conc 33.1 g/dL (31.5-36.5); Mean Corpuscular Volume 114 fL (80-100); Mean Platelet Volume 11.5 fL (9.1-12.4); NEUTROPHILS ABSOLUTE AUTO 11.51 K/mm3 (1.96-9.15); NEUTROPHILS PERCENT AUTO 84 % (41-73); Platelet Count 111 K/mm3 (150-400); RDW Coefficient Variation 14.4 % (11.7-14.2); Red Blood Cell Count 3.45 M/mm3 (4.30-5.90); White Blood Cell Count 13.66 K/mm3 (4.00-11.30)
--- NOTE | 2018-09-16 04:46 | NUR ---
SHIFT SUMMARY PT A&O X4 T/O SHIFT. LS DIM; MOIST NON-PRODUCTIVE COUGH. 2L O2 VIA NC; PT DENIES SOB; CONT. OXIMETRY IN PLACE; O2 >92% T/O SHIFT. VSS. ASPIRATION PRECAUTIONS; NO STRAWS; MECH SOFT DIET. PT SNACKED ON PUDDING SEVERAL TIMES DURING THE NIGHT. ATTENDS IN PLACE; ONE VERY SMALL SOFT STOOL. MEPILEX TO COCCYX AND INTRASCAPULAR SPACE CDI. PT REPOSITIONED PT PERMITTED; PT ABLE TO MAKE SMALL ADJUSTMENTS TO POSITION INDEPENTLY. SCD'S TO BLE'S. BED ALARM AND SIDE RAILS X3 FOR SAFETY. CALL LIGHT IN REACH; PT DEMONSTRATES USE. WCTM UNTIL REPORT TO DAY SHIFT RN.
[2018-09-16 04:53] LABS: Albumin, Blood 1.6 g/dL (3.4-5.0); Anion Gap 7 mmol/L (6-16); Blood Urea Nitrogen 21 mg/dL (8-24); Bun/Creatinine Ratio 37.2 (12.0-20.0); CO2, Blood 29 mmol/L (21-32); Calcium, Blood 8.1 mg/dL (8.5-10.1); Chloride, Blood 102 mmol/L (98-108); Creatinine, Blood 0.57 mg/dL (0.60-1.20); Glomerular Filtration Rate >60 (60-); Glucose, Blood 160 mg/dL (70-99); Phosphorus, Blood 2.9 mg/dL (2.5-4.9); Potassium, Blood 4.5 mmol/L (3.5-5.5); Sodium, Blood 138 mmol/L (136-145)
[2018-09-16 04:57] LABS: Vancomycin, Trough 14.3 ug/mL (5.0-10.0)
--- NOTE | 2018-09-16 10:24 | NUR ---
MENTATION PT CONTINUES TO BE DROWSY. AWAKENS TO NAME, TRACES WITH EYES, FOLLOWS COMMANDS BUT FALLS ASLEEP EASILY AND IS HAVING TROUBLE SPEAKING/MOUTH CONTROL.
--- NOTE | 2018-09-16 12:30 | NUR ---
[facility].
--- NOTE | 2018-09-16 17:33 | NUR ---
RECEIVED TO ROOM 333 FROM [facility] AT 1300 TODAY VIA BED. HE WAS SLID ACROSS TO OUR BED WITH 4 PEOPLE. TELE AND OXIMETRY WERE DC'D PRIOR TO ARRIVAL. HE IS SMILING WHEN SPOKEN TO. HE IS WEAK. DROPLET ISOLATION ONGOING FOR POSITIVE FLU TEST. TINY OPENING PHOTOED ON BUTTOCK BUT ACCIDENTALLY ERASED ON CAMERA BEFORE PRINTING.FOAM DRESSING INTACT BETWEEN HIS SHOULDER BLADES. WET NON-PRODUCTIVE COUGH NOTED. ORIENTED TO ROOM. CALL LIGHT IN REACH. BED ALARM PUT ON.
--- NOTE | 2018-09-16 19:38 | NUR ---
FAMILY AT BEDSIDE. HE HAS NO COMPLAINTS. PO LEVAQUIN STARTED. NO CHANGES SINCE ARRIVAL TO 333.
--- NOTE | 2018-09-17 05:17 | NUR ---
WOMEN'S ACTIVITIES ADVISER SUMMARY NO ACUTE CHANGES THIS SHIFT. PT AAOX2-3, SOMETIMES FORGETFUL BUT PLEASANT AND CAN MAKE NEEDS KNOWN. PT LUNG SOUNDS A BIT COARSE IN BASES BUT PT DENIES SOB AND STATES "I FEEL MUCH BETTER THIS MORNING". PT HAS HAD GOOD APPETITE AND HAS BEEN SNACKING OFF/ON THROUGH THE NIGHT. IS ABLE TO USE THE URINAL AT TIMES BUT IS MOSTLY INCONTINENT. O2 SATS MAINTAINING ON BASELINE 2L O2. VSS, WILL CONTINUE TO MONITOR.
[2018-09-17 05:45] LABS: Hemoglobin 13.7 g/dL (13.5-17.5); Mean Corpuscular HGB 37.8 pg (26.0-34.0); Mean Corpuscular HGB Conc 33.4 g/dL (31.5-36.5); Mean Corpuscular Volume 113 fL (80-100); Mean Platelet Volume 11.2 fL (9.1-12.4); Platelet Count 107 K/mm3 (150-400); RDW Coefficient Variation 14.6 % (11.7-14.2); RDW Standard Deviation 62.1 fL (35.1-46.3); Red Blood Cell Count 3.62 M/mm3 (4.30-5.90); White Blood Cell Count 12.28 K/mm3 (4.00-11.30)
[2018-09-17 06:12] LABS: Anion Gap 5 mmol/L (6-16); Blood Urea Nitrogen 17 mg/dL (8-24); Bun/Creatinine Ratio 27.3 (12.0-20.0); CO2, Blood 35 mmol/L (21-32); Calcium, Blood 8.5 mg/dL (8.5-10.1); Chloride, Blood 99 mmol/L (98-108); Creatinine, Blood 0.62 mg/dL (0.60-1.20); Glomerular Filtration Rate >60 (60-); Glucose, Blood 93 mg/dL (70-99); Sodium, Blood 139 mmol/L (136-145)
--- NOTE | 2018-09-17 16:56 | NUR ---
SHIFT SUMMARY THE PATIENT PRESENTED THIS SHIFT WITH VITALS WNL, A&O TO SELF AND SOME SURROUNDINGS, LUNGS WERE CLEAR, BUT DIM AT BASES. THE PATIENT WAS UP TO HIS CHAIR FOR 2 HOURS BEFORE LUNCH AND THEN WENT BACK TO BED. THE PATIENT'S FAMILY WAS IN TO VISIT WITH THE PATIENT TODAY. THE PATIENT'S CASE WILL BE REVIEWED TOMORROW FOR POSSIBLE SNF PLACEMENT. THE PATIENT IS WATCHING TV AT THIS TIME, WILL CONTINTUE TO MONITOR.
--- NOTE | 2018-09-18 03:44 | NUR ---
SHIFT SUMMARY NO ACUTE CHANGES TO PRESENT THIS SHIFT. POSSIBLE D/C TODAY TO SNF. HAS REMAINED INCONTINENT OF BOWEL AND BLADDER. DOES NOT CALL FOR ASSIST TO BTHRM, BUT WILL CALL AFTER HE HAS BEEN INCONTINENT MOST OF THE TIME. LUNGS T/O COARSE WITH SCATTERED EXP WHEEZES. MEDS ADMINISTERED WHOLE IN APPLESAUCE. REMAINS IN DROPLET ISOLATION FOR THE FLU. NO C/O. CALL LT IN REACH.
[2018-09-18 05:38] LABS: Hematocrit 41.1 % (37.0-53.0); Mean Corpuscular HGB Conc 34.1 g/dL (31.5-36.5); Mean Corpuscular Volume 112 fL (80-100); Mean Platelet Volume 11.7 fL (9.1-12.4); Platelet Count 115 K/mm3 (150-400); RDW Coefficient Variation 14.5 % (11.7-14.2); Red Blood Cell Count 3.68 M/mm3 (4.30-5.90); White Blood Cell Count 11.35 K/mm3 (4.00-11.30)
[2018-09-18 06:03] LABS: Albumin, Blood 1.7 g/dL (3.4-5.0); Anion Gap 4 mmol/L (6-16); Blood Urea Nitrogen 15 mg/dL (8-24); Bun/Creatinine Ratio 28.2 (12.0-20.0); CO2, Blood 33 mmol/L (21-32); Calcium, Blood 8.3 mg/dL (8.5-10.1); Chloride, Blood 100 mmol/L (98-108); Creatinine, Blood 0.53 mg/dL (0.60-1.20); Glomerular Filtration Rate >60 (60-); Glucose, Blood 145 mg/dL (70-99); Phosphorus, Blood 2.7 mg/dL (2.5-4.9); Potassium, Blood 3.9 mmol/L (3.5-5.5); Sodium, Blood 137 mmol/L (136-145)
[2018-09-18] MEDS ORDERED: ALBU2.5V5 INH (10:32)
[2018-09-18] MEDS ORDERED: LEVO750 PO (10:32)
[2018-09-18] MEDS ORDERED: ASPI81CH PO (10:32)
[2018-09-18] MEDS ORDERED: ACIDOPHILUS1 EACH PO (10:33)
[2018-09-18] MEDS ORDERED: OSEL75CA PO (10:33)
--- NOTE | 2018-09-18 13:02 | NUR ---
DISCHARGE SUMMARY PATIENT PLEASANT. INFORMATION ABOUT DISCHARGE GIVEN TO THE PATIENT. IV REMOVED. REPORT CALLED TO CLIFFORD GAYTAN AT [facility].
== END 2018-09-18 12:47 | DRG 193 ==
LOC: ER 12:15 → PCU 13:16 → MEDS 09-16 13:10
PROVIDERS: Emergency Medicine; Internal Medicine; ADMIT Internal Medicine
PROC: 5A09357 Assistance with Respiratory Ventilation, Less than 24 Consecutive Hours, Continuous Positive Airway Pressure (ICD-10-PCS; principal; 2018-09-12)
DX: J10.00 Influenza due to other identified influenza virus with unspecified type of pneumonia (principal); J96.21 Acute and chronic respiratory failure with hypoxia; J96.22 Acute and chronic respiratory failure with hypercapnia; I50.31 Acute diastolic (congestive) heart failure; D68.9 Coagulation defect, unspecified; J44.0 Chronic obstructive pulmonary disease with (acute) lower respiratory infection; K76.6 Portal hypertension; R18.8 Other ascites; I50.32 Chronic diastolic (congestive) heart failure; Z51.5 Encounter for palliative care; J43.9 Emphysema, unspecified; F17.210 Nicotine dependence, cigarettes, uncomplicated; F10.20 Alcohol dependence, uncomplicated; D69.6 Thrombocytopenia, unspecified; K70.9 Alcoholic liver disease, unspecified; Z99.81 Dependence on supplemental oxygen
CPT/HCPCS: 36415; 36600; 71045; 80048; 80053; 80069; 80202; 82803; 83880; 84145; 84484; 85025; 85027; 87040; 87070; 87205; 87486; 87581; 87633; 87798; 92610; 93005; 93010; 94640; 94644; 94660; 94760; 94762; 97110; 97163; 97166; 97530; 97535; 99285-25; J1650; J1940; J2543; J2920; J2930; J3370; J7050

== ENCOUNTER → 2019-03-07 | Outpatient (CLI) | payer OTHER ==
[~2019-03-07] MED LIST changes: +ACIDOPHILUS1 EACH PO; +ASPI81CH PO; +LEVO750 PO; +OSEL75CA PO; +POTCHL20ER PO
== END | disposition home or self-care (01) ==
LOC: LAB SHORT 13:58 → LAB 13:58
DX: L03.116 Cellulitis of left lower limb (principal)
CPT/HCPCS: 87070; 87077; 87147; 87186; 87205

== ENCOUNTER → 2019-03-20 | Outpatient (CLI) | payer OTHER | END | disposition home or self-care (01) | LOC: LAB 11:17 → LAB SHORT 11:17 | DX: A49.02 Methicillin resistant Staphylococcus aureus infection, unspecified site (principal) | CPT/HCPCS: 87070; 87106; 87205 ==

== ENCOUNTER 2019-05-13 15:18 | Inpatient (IN) | payer OTHER ==
[~2019-05-13] VITALS: Ht 175.3 cm; Wt 77.0 kg
[2019-05-13 16:04] LABS: BASOPHILS ABSOLUTE AUTO 0.03 K/mm3 (0.00-0.23); BASOPHILS PERCENT AUTO 1 % (0-2); EOSINOPHILS ABSOLUTE AUTO 0.03 K/mm3 (0.00-0.68); EOSINOPHILS PERCENT AUTO 1 % (0-6); Hematocrit 31.8 % (37.0-53.0); Hemoglobin 11.8 g/dL (13.5-17.5); IMMATURE GRAN ABSOLUTE AUTO 0.03 K/mm3 (0.00-0.10); IMMATURE GRAN PERCENT AUTO 1 % (0-1); LYMPHOCYTES ABSOLUTE AUTO 0.74 K/mm3 (0.84-5.20); LYMPHOCYTES PERCENT AUTO 14 % (21-46); MONOCYTES ABSOLUTE AUTO 0.84 K/mm3 (0.16-1.47); MONOCYTES PERCENT AUTO 16 % (4-13); Mean Corpuscular HGB 39.9 pg (26.0-34.0); Mean Corpuscular HGB Conc 37.1 g/dL (31.5-36.5); Mean Corpuscular Volume 107 fL (80-100); Mean Platelet Volume 10.2 fL (9.1-12.4); NEUTROPHILS ABSOLUTE AUTO 3.67 K/mm3 (1.96-9.15); NEUTROPHILS PERCENT AUTO 69 % (41-73); Platelet Count 169 K/mm3 (150-400); RDW Coefficient Variation 15.4 % (11.7-14.2); RDW Standard Deviation 60.5 fL (35.1-46.3); Red Blood Cell Count 2.96 M/mm3 (4.30-5.90); White Blood Cell Count 5.34 K/mm3 (4.00-11.30)
[2019-05-13 16:19] LABS: International Normalized Ratio 1.48; Prothrombin Time Results 15.1 Sec (9.7-11.5)
[2019-05-13 16:22] LABS: Alanine Aminotransfer (ALT/SGP 45 U/L (12-78); Albumin, Blood 2.4 g/dL (3.4-5.0); Albumin/Globulin Ratio 0.5 (0.8-1.8); Alk Phos 167 U/L (50-136); Anion Gap 10 mmol/L (6-16); Aspartate Aminotrans (AST/SGOT 153 U/L (12-37); Bilirubin, Total 2.2 mg/dL (0.1-1.0); Blood Urea Nitrogen 6 mg/dL (8-24); CO2, Blood 26 mmol/L (21-32); Calcium, Blood 7.9 mg/dL (8.5-10.1); Chloride, Blood 98 mmol/L (98-108); Creatinine, Blood 0.66 mg/dL (0.60-1.20); Globulin, Blood 4.5 g/dL (2.2-4.0); Glomerular Filtration Rate >60 (60-); Glucose, Blood 109 mg/dL (70-99); Potassium, Blood 3.2 mmol/L (3.5-5.5); Sodium, Blood 134 mmol/L (136-145); Total Protein, Blood 6.9 g/dL (6.4-8.2)
--- NOTE | 2019-05-13 21:39 | NUR ---
Critical Lab Lactic Acid lab was 3.3 at 20:58. Updated Caty Rosales to report. No new orders recieved at this time. IV NS running as ordered.
--- NOTE | 2019-05-13 22:00 | NUR ---
ASSISTED PT TO BSC USING FWW. PT HAS HX OF CVA WITH RESIDUAL L SIDE DEFICITS. PT SHAKY DURING AMBULATION. REQUIRED 0XYGEN AFTER RETURNING TO BED. STATES HE USES OXYGEN AT HOME NEEDED 2-3L. PLACED PT ON 3L PER PT REQUEST. TITRATED DOWN AFTER PT REPORTS FEELING LESS SOB. BED ALARM ON. CALL LT IN REACH.
[2019-05-14 01:43] LABS: Source, Urine Catheter
[2019-05-14 01:45] LABS: Bilirubin, Urine Neg (Neg); Blood, Urine 1+ (Neg); Glucose Qualitative, Urine Neg (Neg); Ketones, Urine Neg (Neg); Leukocyte Esterase, Urine 1+ (Neg); Nitrite, Urine Neg (Neg); Protein, Urine Neg (Neg); Specific Gravity, Urine 1.005 (1.003-1.022); Urobilinogen, Urine 2+ (Normal)
[2019-05-14 01:50] LABS: Appearance, Urine Clear (Clear); Color, Urine Yellow (P-Yellow)
[2019-05-14 01:51] LABS: Bacteria Few /hpf; Red Blood Cells, Urine 0-2 /hpf (0-2); Squamous Epithelial Cells Not Seen /hpf (Few)
[2019-05-14 04:40] LABS: BASOPHILS ABSOLUTE AUTO 0.04 K/mm3 (0.00-0.23); BASOPHILS PERCENT AUTO 1 % (0-2); EOSINOPHILS ABSOLUTE AUTO 0.07 K/mm3 (0.00-0.68); EOSINOPHILS PERCENT AUTO 1 % (0-6); Hematocrit 31.4 % (37.0-53.0); Hemoglobin 11.3 g/dL (13.5-17.5); IMMATURE GRAN ABSOLUTE AUTO 0.09 K/mm3 (0.00-0.10); IMMATURE GRAN PERCENT AUTO 1 % (0-1); LYMPHOCYTES ABSOLUTE AUTO 0.34 K/mm3 (0.84-5.20); LYMPHOCYTES PERCENT AUTO 4 % (21-46); MONOCYTES ABSOLUTE AUTO 0.64 K/mm3 (0.16-1.47); MONOCYTES PERCENT AUTO 7 % (4-13); Mean Corpuscular HGB 39.1 pg (26.0-34.0); Mean Corpuscular Volume 109 fL (80-100); Mean Platelet Volume 9.9 fL (9.1-12.4); NEUTROPHILS ABSOLUTE AUTO 7.42 K/mm3 (1.96-9.15); NEUTROPHILS PERCENT AUTO 86 % (41-73); Platelet Count 160 K/mm3 (150-400); RDW Coefficient Variation 15.5 % (11.7-14.2); RDW Standard Deviation 60.8 fL (35.1-46.3); Red Blood Cell Count 2.89 M/mm3 (4.30-5.90)
[2019-05-14 04:57] LABS: Anion Gap 6 mmol/L (6-16); Blood Urea Nitrogen 5 mg/dL (8-24); Bun/Creatinine Ratio 7.2 (12.0-20.0); CO2, Blood 28 mmol/L (21-32); Calcium, Blood 7.4 mg/dL (8.5-10.1); Chloride, Blood 103 mmol/L (98-108); Glomerular Filtration Rate >60 (60-); Glucose, Blood 116 mg/dL (70-99); Potassium, Blood 3.5 mmol/L (3.5-5.5); Sodium, Blood 137 mmol/L (136-145)
--- NOTE | 2019-05-14 07:21 | NUR ---
Shift Summary Patient slept intermittently between cares. Left foot is painfull to touch, but he offered no c/o pain at rest. Elevated legsin bed. Attempted dry dressing, but he Pt preferred it off. Wound is scabbed and BAIL AGENT, surrounding skin to RLE is red and warm. Tachycardia remained relatively stable throughout the night.
--- NOTE | 2019-05-15 04:52 | NUR ---
Shift Summary Patient slept intermittently overnight. He offered no c/o pain or SOB. He does continue to be intocontinent, and he was found to be in wet sheets despite not asking for assistance. Assisted in changing linens, and encouraged Patient to notify staff if he is incontinent. Will update AM staff to monitor in case he is at risk for failure to thrive after DC.
--- NOTE | 2019-05-15 17:36 | NUR ---
NO ACUTE CHANGES. PATIENT HAS BEEN UP WALKING THE HALLS WITH FWW . HE HAS HAD NO COMPLAINTS OF PAIN OR SOB. PATIENT WAS GIVEN A BED BATH HE HAD DIARRHEA THIS MORNING WHICH HAS NOW CLEARED UP. HIS APPETITE IS GOOD . HE IS COMPLIANT WITH ALL CARES AND FRIENDLY WITH STAFF.
--- NOTE | 2019-05-16 05:33 | NUR ---
Shift Summary Patient slept intermittently overnight and woke several times with wet sheets/pants and to sit at the edge of the bed. He is demonstrating some impaired judgement and insight into his situation. At one point, he walked out into the hallway without pants on, and he said he was going outside. He Dug into his dirty laundry and put on soiled clothes and slippers, after which time he was assisted to clean up, and he was placed on bed alarm. He was redirected back into his room after he walked into the hallway without pants. Although he seems oriented, his judgement and insight -- especially about hygiene -- seem like significant contributing factors to his current medical problem. Will report to [facility] and suggest OT cognitive evaluation, if that is possible, to ensure he has appropriate assistance after discharge.
--- NOTE | 2019-05-16 07:45 | NUR ---
PT GAVE ME PERMISSION TO CARE FOR HIM ON 05/16/2019. PT UP IN CHAIR. CHAIR ALARM ON.
--- NOTE | 2019-05-16 08:27 | NUR ---
PT UP IN CHAIR FOR BREAKFAST. PT ATE 100% OF MEAL. PT BACK IN BED RESTING. BED ALARM ON.
--- NOTE | 2019-05-16 09:19 | NUR ---
PT UP IN CHAIR. PT BEING DISCHARGED. ROOMATE COMING TO MAINTENANCE ENGINEER OIL FIELD PT, SUPPOSE TO BRING CLEAN CLOTHES.
[2019-05-16] MEDS ORDERED: ASPI81CH PO (09:31)
[2019-05-16] MEDS ORDERED: SPIR25 PO (09:32)
[2019-05-16] MEDS ORDERED: FURO20 PO (09:32)
[2019-05-16] MEDS ORDERED: CEPH250A PO (09:32)
[2019-05-16] MEDS ORDERED: ALBU90OI INH (09:33)
--- NOTE | 2019-05-16 10:25 | NUR ---
PATIENT D/C'D TO HOME WITH FRIEND. RX MEDICATIONS FAXED TO [facility]. D/C INSTRUCTIONS AND EDUCATIONS DISCUSSED WITH PATIENT AND COPY PROVIDED. PATIENT DENIES ANY FURTHER QUESTIONS OR CONCERNS.
== END 2019-05-16 10:34 | disposition home or self-care (01) | DRG 603 ==
LOC: ER 15:18 → MEDS 18:36 → ENPENDDIS 05-16 09:16 → MEDS 05-16 10:34
PROVIDERS: Pharmacist; Physician Assistant; ADMIT Hospitalist
DX: L03.115 Cellulitis of right lower limb (principal); I50.32 Chronic diastolic (congestive) heart failure; R78.81 Bacteremia; J44.9 Chronic obstructive pulmonary disease, unspecified; L03.116 Cellulitis of left lower limb; I11.0 Hypertensive heart disease with heart failure; K70.9 Alcoholic liver disease, unspecified; R19.5 Other fecal abnormalities; Z99.81 Dependence on supplemental oxygen; R09.02 Hypoxemia
CPT/HCPCS: 36415; 73590; 73620; 80048; 80053; 80202; 81001; 83605; 83880; 84145; 85025; 85610; 85730; 87040; 87077; 87086; 90686; 93005; 93010; 94640; 94760; 96365; 96367; 99285-25; G0008; J0696; J1650; J2543; J3370; J7030; J7050